=== PATIENT | male | born 1995 | race Hispanic/Latino ===

== ENCOUNTER 2017-09-05 14:51 | Inpatient (IN) | payer OTHER ==
[2017-09-05] MEDS ORDERED: ATIVAN IV STA (16:35)
[2017-09-05] MEDS ORDERED: NACL 0.9% 1000 ML 2,000 ML IV ONE (16:35)
[2017-09-05 16:59] LABS: Hematocrit 41.2 % (35.5-45.6); Hemoglobin 14.1 gm/dl (11.8-15.2); Mean Corpuscular HGB Conc 34 % (32-34); Mean Corpuscular Hemoglobin 32 pg (28-32); Mean Corpuscular Volume 92 fl (84-94); Platelet Count 193 K/mm3 (140-440); Red Blood Count 4.47 M/mm3 (3.65-5.03); Red Cell Distribution Width 13.1 % (13.2-15.2)
[2017-09-05 17:14] LABS: BUN/Creatinine Ratio 16; Blood Urea Nitrogen 13 mg/dL (9-20); Calcium 9.5 mg/dL (8.4-10.2); Hemolysis Index 7
[2017-09-05 17:16] LABS: Alanine Aminotransferase 13 units/L (7-56); Albumin 4.5 g/dL (3.9-5)
[2017-09-05 17:21] LABS: Bilirubin,Direct < 0.2 mg/dL (0-0.2)
[2017-09-05 17:25] LABS: Bilirubin,Urine NEG (Negative); Blood,Urine NEG (Negative); Color,Urine Yellow (Yellow); Mucus,Urine FEW /HPF; Protein,Urine <15 mg/dL mg/dL (Negative); Urobilinogen,Urine < 2.0 mg/dL (<2.0)
[2017-09-05 17:32] LABS: Amphetamine Screen,Urine PRESUMPTIVE NEGATIVE; Benzodiazepines Screen,Urine PRESUMPTIVE NEGATIVE; Cannabinoid Screen,Urine PRESUMPTIVE NEGATIVE; Cocaine Screen,Urine PRESUMPTIVE NEGATIVE; Methadone Screen,Urine PRESUMPTIVE NEGATIVE; Opiate Screen,Urine PRESUMPTIVE NEGATIVE
--- NOTE | 2017-09-05 17:41 | Emergency Department Report ---
ED General Adult HPI - General Chief complaint: Seizure Stated complaint: SEIZURE Time Seen by Provider: 09/05/17 16:24 Source: patient, EMS (ems notes not available at time of chart dictation), RN notes reviewed, old records reviewed Mode of arrival: Stretcher Limitations: Other (patient is a very poor historian) - History of Present Illness Initial comments: This is a 21-year-old male with a past history of PTSD, to inpatient psychiatric hospitalizations, history of alcohol abuse, former . The patient is brought to the hospital by EMS from a local psychiatric hospital for evaluation of a convulsion. The patient has no recollection of this convulsion. He can't recall precipitating events. The patient denies headache, neck pain, chest pain, abdominal pain, shortness of breath and urinary symptoms. Patient indicates he hasn't had alcohol for 8 months, and he has generalized tremors. He is not sure how long the tremors have been presents for. He cannot describe radiation, exacerbating or relieving factors. He does indicate that back in 2014 he had a convulsion versus seizure, can't recall what the event looked like, but reports that it was while he was in [place] and under a lot of stress. -: Sudden Severity scale (0 -10): 0 Consistency: now resolved Improves with: none Worsens with: none Associated Symptoms: confusion, seizure, weakness. denies: chest pain, cough, diaphoresis, fever/chills, headaches, loss of appetite, malaise, nausea/vomiting , rash, shortness of breath, syncope - Related Data Allergies Allergy/AdvReac Type Severity Reaction Status Date / Time fluoxetine [From Prozac] AdvReac Hives Verified 09/05/17 16:11 peanut AdvReac Angioedema Verified 09/05/17 16:11 walnut AdvReac Angioedema Verified 09/05/17 16:11 ED Review of Systems ROS: Stated complaint: SEIZURE Other details as noted in HPI Constitutional: malaise. denies: fever Eyes: denies: eye discharge ENT: denies: epistaxis Respiratory: denies: cough Cardiovascular: denies: chest pain Gastrointestinal: denies: abdominal pain Genitourinary: denies: dysuria Musculoskeletal: arthralgia, myalgia Skin: denies: lesions Neurological: weakness Psychiatric: anxiety ED Past Medical Hx - Past Medical History Hx Seizures: No Hx Psychiatric Treatment: Yes (PTSD, ALCOHOLISM) - Surgical History Past Surgical History?: No - Social History Smoking Status: Light Tobacco Smoker Substance Use Type: Alcohol ED Physical Exam - General Limitations: No Limitations General appearance: alert, in distress - Head Head exam: Present: atraumatic, normocephalic - Eye Eye exam: Present: normal appearance, EOMI. Absent: nystagmus - ENT ENT exam: Present: mucous membranes dry - Neck Neck exam: Present: normal inspection, full ROM. Absent: tenderness, meningismus - Respiratory Respiratory exam: Present: normal lung sounds bilaterally. Absent: respiratory distress - Cardiovascular Cardiovascular Exam: Present: regular rate, tachycardia, normal heart sounds. Absent: systolic murmur, diastolic murmur, rubs, gallop - GI/Abdominal GI/Abdominal exam: Present: soft, normal bowel sounds. Absent: distended, tenderness, guarding, rebound, rigid, pulsatile mass - Rectal Rectal exam: Present: deferred - Extremities Exam Extremities exam: Present: normal inspection, full ROM, normal capillary refill , other (2+ pulses noted in the bilateral upper, lower extremities. Compartments soft. No long bony tenderness. The pelvis is stable.). Absent: pedal edema, joint swelling, calf tenderness - Back Exam Back exam: Present: normal inspection, full ROM. Absent: paraspinal tenderness , vertebral tenderness - Neurological Exam Neurological exam: Present: alert (able to recall 3 out of 3 words at 0, but not at time 10 minutes.), oriented X3 (noted to have intentional tremor in 4 extremities which stops when you talk and engage the patient.), CN II-XII intact , normal gait, other (5 out of 5 strength bilateral upper, lower extremities. Sensation decreased to light touch right upper, right lower extremity which he reports is chronic. Sensation intact to pinprick in 4 extremities.). Absent: motor sensory deficit - Psychiatric Psychiatric exam: Present: anxious - Skin Skin exam: Present: warm, dry, intact, normal color. Absent: rash ED Course Vital Signs 09/05/17 09/05/17 09/05/17 15:42 15:43 16:02 Temperature 98.1 F 98.1 F Pulse Rate 115 H 115 H Respiratory 15 15 15 Rate Blood Pressure 124/77 Blood Pressure 124/77 [Right] O2 Sat by Pulse 99 Oximetry 09/05/17 09/05/17 19:34 19:35 Temperature 98.1 F Pulse Rate 87 Respiratory 18 Rate Blood Pressure 142/58 Blood Pressure 142/58 [Right] O2 Sat by Pulse 98 Oximetry - Reevaluation(s) Reevaluation #1: 09/05/17 17:41 Differential diagnosis, including but not limited to: Seizure, pseudoseizure, dehydration, alcohol withdrawal, nonspecific convulsion Assessment and plan: 21-year-old male with PTSD with bizarre affect, but not homicidal or suicidal, has a tremor which stops when you talk to him, with no obvious tongue fasciculations and no reported alcohol consumption for the past 8 months. He will be given IV fluids, Ativan, and basic laboratory studies will be evaluated and we will obtain a noncontrast CT scan of the brain. Elevated TSH is appreciated, may have a component of hypothyroidism, however he is tachycardic and slender, and does not endorse fatigue and does not endorse constipation. This can be followed up routinely as an outpatient. His other laboratory studies are unremarkable. 09/05/17 20:30 Reevaluation #2: 09/05/17 18:07 As per verbal report from nursing staff, patient's orally consumed some tobacco. He has been acting bizarrely ever since. He attempted to drink his own urine and stated that he thought it was lemonade. He is also not enunciating clearly, and articulates as though he is intoxicated. He is not exhibiting decision making capacity at this time, and given his attempt to consume urine, I am concerned that this was an act of self injurious behavior. The patient does not respond to verbal techniques or de-escalation techniques. He does not respond to show a force, and therefore required medication with Haldol for his safety and for staff safety. A 1013 is filled out, we will contact the psychiatric liaison Reevaluation #3: 09/05/17 20:30 Tachycardia is resolved. Patient has nibbled at some of his food. He continues to act bizarrely. He's not had a convulsion or seizure. Reevaluation #4: 09/05/17 20:47 The patient continues to refuse to eat. He lacks decision-making capacity. The outpatient psychiatric facility does not have the capability of closely monitoring his fingersticks. His hypoglycemia is the most likely etiologic agent for his convulsion. He will require hospital admission for glycemic control and optimization, and inpatient psychiatric consultation to further assist. He'll be started on a D10 drip. The Hospital physician is paged Reevaluation #5: 09/05/17 21:42 Dr. Cooley accepted the patient to the medical service. ED Medical Decision Making - Lab Data Result diagrams: 09/05/17 16:38 09/05/17 16:38 Vital Signs 09/05/17 09/05/17 09/05/17 15:42 15:43 16:02 Temperature 98.1 F 98.1 F Pulse Rate 115 H 115 H Respiratory 15 15 15 Rate Blood Pressure 124/77 Blood Pressure 124/77 [Right] O2 Sat by Pulse 99 Oximetry Lab Results 09/05/17 09/05/17 09/05/17 Range/Units 16:00 16:38 16:38 WBC 7.4 (4.5-11.0) K/mm3 RBC 4.47 (3.65-5.03) M/mm3 Hgb 14.1 (11.8-15.2) gm/dl Hct 41.2 (35.5-45.6) % MCV 92 (84-94) fl MCH 32 (28-32) pg MCHC 34 (32-34) % RDW 13.1 L (13.2-15.2) % Plt Count 193 (140-440) K/mm3 Sodium 137 (137-145) mmol/L Potassium 4.1 (3.6-5.0) mmol/L Chloride 98.7 (98-107) mmol/L Carbon Dioxide 25 (22-30) mmol/L Anion Gap 17 mmol/L BUN 13 (9-20) mg/dL Creatinine 0.8 (0.8-1.5) mg/dL Estimated GFR > 60 ml/min BUN/Creatinine Ratio 16 % Glucose 68 L (75-100) mg/dL POC Glucose 87 (70-105) Calcium 9.5 (8.4-10.2) mg/dL Magnesium (1.7-2.3) mg/dL Total Bilirubin (0.1-1.2) mg/dL Direct Bilirubin (0-0.2) mg/dL Indirect Bilirubin mg/dL AST (5-40) units/L ALT (7-56) units/L Alkaline Phosphatase (35-129) units/L Ammonia (25-60) umol/L Total Protein (6.3-8.2) g/dL Albumin (3.9-5) g/dL Albumin/Globulin Ratio % TSH (0.270-4.200) mlU/mL Urine Color (Yellow) Urine Turbidity (Clear) Urine pH (5.0-7.0) Ur Specific [place] (1.003-1.030) Urine Protein (Negative) mg/dL Urine Glucose (UA) (Negative) mg/dL Urine Ketones (Negative) mg/dL Urine Blood (Negative) Urine Nitrite (Negative) Urine Bilirubin (Negative) Urine Urobilinogen (<2.0) mg/dL Ur Leukocyte Esterase (Negative) Urine WBC (Auto) (0.0-6.0) /HPF Urine RBC (Auto) (0.0-6.0) /HPF U Epithel Cells (Auto) (0-13.0) /HPF Urine Mucus /HPF Salicylates (2.8-20.0) mg/dL Urine Opiates Screen Urine Methadone Screen Acetaminophen (10.0-30.0) ug/mL Ur Barbiturates Screen Ur Phencyclidine Scrn Ur Amphetamines Screen U Benzodiazepines Scrn Urine Cocaine Screen U Marijuana (THC) Screen Drugs of Abuse Note Plasma/Serum Alcohol (0-0.07) % 09/05/17 09/05/17 09/05/17 Range/Units 16:38 16:38 16:38 WBC (4.5-11.0) K/mm3 RBC (3.65-5.03) M/mm3 Hgb (11.8-15.2) gm/dl Hct (35.5-45.6) % MCV (84-94) fl MCH (28-32) pg MCHC (32-34) % RDW (13.2-15.2) % Plt Count (140-440) K/mm3 Sodium (137-145) mmol/L Potassium (3.6-5.0) mmol/L Chloride (98-107) mmol/L Carbon Dioxide (22-30) mmol/L Anion Gap mmol/L BUN (9-20) mg/dL Creatinine (0.8-1.5) mg/dL Estimated GFR ml/min BUN/Creatinine Ratio % Glucose (75-100) mg/dL POC Glucose (70-105) Calcium (8.4-10.2) mg/dL Magnesium 2.30 (1.7-2.3) mg/dL Total Bilirubin 0.40 (0.1-1.2) mg/dL Direct Bilirubin < 0.2 (0-0.2) mg/dL Indirect Bilirubin 0.2 mg/dL AST 20 (5-40) units/L ALT 13 (7-56) units/L Alkaline Phosphatase 58 (35-129) units/L Ammonia 40.0 (25-60) umol/L Total Protein 6.9 (6.3-8.2) g/dL Albumin 4.5 (3.9-5) g/dL Albumin/Globulin Ratio 1.9 % TSH 7.270 H (0.270-4.200) mlU/mL Urine Color (Yellow) Urine Turbidity (Clear) Urine pH (5.0-7.0) Ur Specific [place] (1.003-1.030) Urine Protein (Negative) mg/dL Urine Glucose (UA) (Negative) mg/dL Urine Ketones (Negative) mg/dL Urine Blood (Negative) Urine Nitrite (Negative) Urine Bilirubin (Negative) Urine Urobilinogen (<2.0) mg/dL Ur Leukocyte Esterase (Negative) Urine WBC (Auto) (0.0-6.0) /HPF Urine RBC (Auto) (0.0-6.0) /HPF U Epithel Cells (Auto) (0-13.0) /HPF Urine Mucus /HPF Salicylates (2.8-20.0) mg/dL Urine Opiates Screen Urine Methadone Screen Acetaminophen (10.0-30.0) ug/mL Ur Barbiturates Screen Ur Phencyclidine Scrn Ur Amphetamines Screen U Benzodiazepines Scrn Urine Cocaine Screen U Marijuana (THC) Screen Drugs of Abuse Note Plasma/Serum Alcohol (0-0.07) % 09/05/17 09/05/17 09/05/17 Range/Units 16:38 16:38 16:38 WBC (4.5-11.0) K/mm3 RBC (3.65-5.03) M/mm3 Hgb (11.8-15.2) gm/dl Hct (35.5-45.6) % MCV (84-94) fl MCH (28-32) pg MCHC (32-34) % RDW (13.2-15.2) % Plt Count (140-440) K/mm3 Sodium (137-145) mmol/L Potassium (3.6-5.0) mmol/L Chloride (98-107) mmol/L Carbon Dioxide (22-30) mmol/L Anion Gap mmol/L BUN (9-20) mg/dL Creatinine (0.8-1.5) mg/dL Estimated GFR ml/min BUN/Creatinine Ratio % Glucose (75-100) mg/dL POC Glucose (70-105) Calcium (8.4-10.2) mg/dL Magnesium (1.7-2.3) mg/dL Total Bilirubin (0.1-1.2) mg/dL Direct Bilirubin (0-0.2) mg/dL Indirect Bilirubin mg/dL AST (5-40) units/L ALT (7-56) units/L Alkaline Phosphatase (35-129) units/L Ammonia (25-60) umol/L Total Protein (6.3-8.2) g/dL Albumin (3.9-5) g/dL Albumin/Globulin Ratio % TSH (0.270-4.200) mlU/mL Urine Color (Yellow) Urine Turbidity (Clear) Urine pH (5.0-7.0) Ur Specific [place] (1.003-1.030) Urine Protein (Negative) mg/dL Urine Glucose (UA) (Negative) mg/dL Urine Ketones (Negative) mg/dL Urine Blood (Negative) Urine Nitrite (Negative) Urine Bilirubin (Negative) Urine Urobilinogen (<2.0) mg/dL Ur Leukocyte Esterase (Negative) Urine WBC (Auto) (0.0-6.0) /HPF Urine RBC (Auto) (0.0-6.0) /HPF U Epithel Cells (Auto) (0-13.0) /HPF Urine Mucus /HPF Salicylates < 0.3 L (2.8-20.0) mg/dL Urine Opiates Screen Urine Methadone Screen Acetaminophen < 5.0 L (10.0-30.0) ug/mL Ur Barbiturates Screen Ur Phencyclidine Scrn Ur Amphetamines Screen U Benzodiazepines Scrn Urine Cocaine Screen U Marijuana (THC) Screen Drugs of Abuse Note Plasma/Serum Alcohol < 0.01 (0-0.07) % 07/13/18 07/13/18 Range/Units Unknown Unknown WBC (4.5-11.0) K/mm3 RBC (3.65-5.03) M/mm3 Hgb (11.8-15.2) gm/dl Hct (35.5-45.6) % MCV (84-94) fl MCH (28-32) pg MCHC (32-34) % RDW (13.2-15.2) % Plt Count (140-440) K/mm3 Sodium (137-145) mmol/L Potassium (3.6-5.0) mmol/L Chloride (98-107) mmol/L Carbon Dioxide (22-30) mmol/L Anion Gap mmol/L BUN (9-20) mg/dL Creatinine (0.8-1.5) mg/dL Estimated GFR ml/min BUN/Creatinine Ratio % Glucose (75-100) mg/dL POC Glucose (70-105) Calcium (8.4-10.2) mg/dL Magnesium (1.7-2.3) mg/dL Total Bilirubin (0.1-1.2) mg/dL Direct Bilirubin (0-0.2) mg/dL Indirect Bilirubin mg/dL AST (5-40) units/L ALT (7-56) units/L Alkaline Phosphatase (35-129) units/L Ammonia (25-60) umol/L Total Protein (6.3-8.2) g/dL Albumin (3.9-5) g/dL Albumin/Globulin Ratio % TSH (0.270-4.200) mlU/mL Urine Color Yellow (Yellow) Urine Turbidity Clear (Clear) Urine pH 7.0 (5.0-7.0) Ur Specific [place] 1.012 (1.003-1.030) Urine Protein <15 mg/dl (Negative) mg/dL Urine Glucose (UA) Neg (Negative) mg/dL Urine Ketones Neg (Negative) mg/dL Urine Blood Neg (Negative) Urine Nitrite Neg (Negative) Urine Bilirubin Neg (Negative) Urine Urobilinogen < 2.0 (<2.0) mg/dL Ur Leukocyte Esterase Neg (Negative) Urine WBC (Auto) 1.0 (0.0-6.0) /HPF Urine RBC (Auto) 1.0 (0.0-6.0) /HPF U Epithel Cells (Auto) < 1.0 (0-13.0) /HPF Urine Mucus Few /HPF Salicylates (2.8-20.0) mg/dL Urine Opiates Screen Presumptive negative Urine Methadone Screen Presumptive negative Acetaminophen (10.0-30.0) ug/mL Ur Barbiturates Screen Presumptive negative Ur Phencyclidine Scrn Presumptive negative Ur Amphetamines Screen Presumptive negative U Benzodiazepines Scrn Presumptive negative Urine Cocaine Screen Presumptive negative U Marijuana (THC) Screen Presumptive negative Drugs of Abuse Note Disclamer Plasma/Serum Alcohol (0-0.07) % - EKG Data -: EKG Interpreted by Me EKG shows normal: sinus rhythm Rate: tachycardia - EKG Data When compared to previous EKG there are: previous EKG unavailable 09/05/17 17:41 Sinus tachycardia, 100 bpm, QTc 461, borderline high left ventricular voltage, Q waves noted in inferior leads, abnormal EKG, not a STEMI Critical care attestation.: If time is entered above; I have spent that time in minutes in the direct care of this critically ill patient, excluding procedure time. ED Disposition Clinical Impression: Hypoglycemia Convulsion Qualifiers: Convulsion type: unspecified Qualified Code(s): R56.9 - Unspecified convulsions Disposition: DC-09 OP ADMIT IP TO THIS HOSP Is pt being admited?: Yes Condition: Good Referrals: PRIMARY CARE, [Primary Care Provider] - 3-5 Days
[2017-09-05] MEDS ORDERED: D50W (25GM) Vial IV ONE (17:47)
[2017-09-05] MEDS ORDERED: HALDOL ONE (17:54)
[2017-09-05] MEDS ORDERED: HALDOL IM STA (17:59)
[2017-09-05] MEDS ORDERED: D50W (25GM) Syringe IV ONE ×2 (18:00→20:48)
--- NOTE | 2017-09-05 19:08 | Cat Scan Report ---
FINAL REPORT EXAM: CT HEAD/BRAIN WO CON HISTORY: seizure TECHNIQUE: CT head without contrast PRIORS: None. FINDINGS: No acute intra-axial or extra-axial hemorrhage is identified. There is no evidence of midline shift or mass effect. The ventricles and sulci are within normal limits. Puentes-white matter differentiation is intact. No acute parenchymal abnormalities seen. Bony calvarium is grossly intact. Visualized portions of the mastoids and paranasal sinuses are unremarkable. IMPRESSION: Negative CT head
[2017-09-05] MEDS ORDERED: D50W (25GM) Vial IV PRN (20:48)
[2017-09-05] MEDS ORDERED: ZOFRAN IV PRN (22:23)
[2017-09-05] MEDS ORDERED: SODIUM CHLORIDE FLUSH SYRINGE 10 ML IV PRN (22:23)
[2017-09-05] MEDS ORDERED: TYLENOL PO PRN (22:23)
[2017-09-05] MEDS ORDERED: D50W (25GM) Syringe IV PRN (22:28)
--- NOTE | 2017-09-05 22:38 | History and Physical Report ---
History of Present Illness Date of examination: 09/05/17 History of present illness: 21 year old man with history of depression, PTSD, alcohol abuse was sent to the emergency room from [facility] for evaluation of seizure. family services assistant from [facility] stated that the patient had a witnessed seizure lasting for approximately 5 minutes. The patient is sedated, he was given IV Ativan, haldol.ER physician states patient does not want to eat, was acting bizarre, wanting to drink his urine from the urinal, he was subsequently 1013. Review of system is unobtainable PAST MEDICAL HISTORY: depression, PTSD, alcohol abuse PAST SURGICAL HISTORY: Unknown SOCIAL HISTORY: Unknown FAMILY HISTORY: Unknown Medications and Allergies Allergies Allergy/AdvReac Type Severity Reaction Status Date / Time fluoxetine [From Prozac] AdvReac Hives Verified 09/05/17 16:11 peanut AdvReac Angioedema Verified 09/05/17 16:11 walnut AdvReac Angioedema Verified 09/05/17 16:11 Home Medications Medication Instructions Recorded Confirmed Last Taken Type Benadryl CAP 50 mg IV Q4HR PRN 09/08/17 09/08/17 09/05/17 History Clonidine 0.1 mg PO Q8HR PRN 09/08/17 09/08/17 Unknown History Cogentin 1 mg PO Q4HR PRN 09/08/17 09/08/17 09/04/17 History Cough Drops 1 lozenge PO 8XD PRN 09/08/17 09/08/17 Unknown History Diphen/Mylanta/Xyl Visc 30 ml PO DAILY PRN 09/08/17 09/08/17 Unknown History Escitalopram Oxalate [Lexapro] 20 mg PO DAILY 09/08/17 09/08/17 09/05/17 History Iron Post 300 mg PO BID 09/08/17 09/08/17 Unknown History Loperamide 2 mg PO 4XD PRN 09/08/17 09/08/17 Unknown History Loratadine 10 mg PO DAILY PRN 09/08/17 09/08/17 Unknown History Magnesium Hydroxide 30 ml PO DAILY PRN 09/08/17 09/08/17 Unknown History Minipress 2 mg PO HS 09/08/17 09/08/17 09/05/17 History Motrin 800 MG tab 800 mg PO TID PRN 09/08/17 09/08/17 Unknown History Risperdal 3 mg PO BID 09/08/17 09/08/17 09/05/17 History Trazodone HCl 50 mg PO HS PRN 09/08/17 09/08/17 Unknown History Vistaril 50 mg PO Q8HR PRN 09/08/17 09/08/17 Unknown History Active Meds: Active Medications Acetaminophen (Tylenol) 650 mg PO Q4H PRN PRN Reason: Pain MILD(1-3)/Fever >100.5/CAMPBELL Dextrose (D50w (25gm) Vial) 50 gm IV PRN PRN PRN Reason: Hypoglycemia Enoxaparin Sodium (Lovenox) 30 mg SUB-Q QDAY FRANCOIS Dextrose (D10w) 1,000 mls @ 100 mls/hr IV DIRECT FRANCOIS Ondansetron HCl (Zofran) 4 mg IV Q8H PRN PRN Reason: Nausea And Vomiting Sodium Chloride (Sodium Chloride Flush Syringe 10 Ml) 10 ml IV BID FRANCOIS Sodium Chloride (Sodium Chloride Flush Syringe 10 Ml) 10 ml IV PRN PRN PRN Reason: LINE FLUSH Exam - Physical Exam Narrative exam: Gen. appearance: Patient lying in bed, no apparent distress HEENT: Normocephalic, atraumatic, pupils equally round and reactive to light, unable to do extraocular movement , and no sclericterus,. No JVD or thyromegaly or nodule,neck supple, no carotid bruit ,mucous membranes moist, unable to examine oral cavity Heart: S1, S2, regular rate and rhythm Lungs: Clear bilaterally, breathing comfortable Abdomen: Positive bowel sounds, soft, nondistended, no organomegaly Extremity:no edema cyanosis, clubbing Skin: no rash, dry, warm Neuro: Sedated - Constitutional Vitals: Temp Pulse Resp BP Pulse Ox 98.1 F 87 18 142/58 98 09/05/17 19:35 09/05/17 19:35 09/05/17 19:35 09/05/17 19:35 09/05/17 19:35 Results - Labs CBC & Chem 7: 09/06/17 06:03 09/07/17 14:21 Labs: Abnormal lab results 09/05/17 09/05/17 09/05/17 Range/Units 16:38 16:38 16:38 RDW 13.1 L (13.2-15.2) % Glucose 68 L (75-100) mg/dL POC Glucose (70-105) TSH 7.270 H (0.270-4.200) mlU/mL Salicylates (2.8-20.0) mg/dL Acetaminophen (10.0-30.0) ug/mL 09/05/17 09/05/17 09/05/17 Range/Units 16:38 16:38 18:28 RDW (13.2-15.2) % Glucose (75-100) mg/dL POC Glucose 130 H (70-105) TSH (0.270-4.200) mlU/mL Salicylates < 0.3 L (2.8-20.0) mg/dL Acetaminophen < 5.0 L (10.0-30.0) ug/mL 09/05/17 09/05/17 Range/Units 20:42 21:50 RDW (13.2-15.2) % Glucose (75-100) mg/dL POC Glucose 68 L 149 H (70-105) TSH (0.270-4.200) mlU/mL Salicylates (2.8-20.0) mg/dL Acetaminophen (10.0-30.0) ug/mL - Imaging and Cardiology CT Scan - head: report reviewed Assessment and Plan Assessment Seizure, acute Hypoglycemia, ? decrease oral inake Plan Admit to medicine IV ativan for seizure Start D10, monitor blood levels DVT prophalaxis
[2017-09-05] MEDS: D10W 1,000 ML IV SCH (22:56)
[2017-09-06 06:57] LABS: Basophils # (Auto) 0.1 K/mm3 (0.0-0.1); Basophils % (Auto) 0.8 % (0.0-1.8); Eosinophils # (Auto) 0.3 K/mm3 (0.0-0.4); Eosinophils % (Auto) 3.2 % (0.0-4.3); Hematocrit 39.1 % (35.5-45.6); Hemoglobin 13.3 gm/dl (11.8-15.2); Mean Corpuscular HGB Conc 34 % (32-34); Mean Corpuscular Hemoglobin 31 pg (28-32); Mean Corpuscular Volume 93 fl (84-94); Monocytes # (Auto) 1.1 K/mm3 (0.0-0.8); Monocytes % (Auto) 10.3 % (0.0-7.3); Platelet Count 167 K/mm3 (140-440); Red Blood Count 4.22 M/mm3 (3.65-5.03); Red Cell Distribution Width 12.9 % (13.2-15.2)
[2017-09-06 07:06] LABS: BUN/Creatinine Ratio 14; Blood Urea Nitrogen 11 mg/dL (9-20); Calcium 9.5 mg/dL (8.4-10.2); Hemolysis Index 5
[2017-09-06] MEDS ORDERED: HALDOL IM PRN (07:29)
[2017-09-06] MEDS ORDERED: ATIVAN IV PRN (07:29)
[2017-09-06] MEDS: D10W 1,000 ML IV SCH ×2 (08:32→20:39)
[2017-09-06] MEDS: LOVENOX SUB-Q SCH (10:02)
[2017-09-06] MEDS: SODIUM CHLORIDE FLUSH SYRINGE 10 ML IV SCH ×2 (13:27→21:53)
--- NOTE | 2017-09-06 14:39 | Progress Note ---
Assessment and Plan Acute Seizure, induced by hypoglycemia? Hypoglycemia, ? decrease oral inake - IV ativan as needed for seizure, neuro consult - cont D10, monitor blood levels - psych consulted - DVT prophylaxis Subjective Date of service: 09/06/17 Interval history: Pt seen and examined Appetite improved, still c/o SI sitter at bedside Objective - Constitutional Vitals: Vital Signs - 12hr 09/06/17 09/06/17 09/06/17 05:56 06:00 08:05 Temperature 98.6 F 98.2 F Pulse Rate 81 74 Respiratory 20 18 Rate Blood Pressure 118/65 100/59 O2 Sat by Pulse 100 100 Oximetry 09/06/17 08:11 Temperature Pulse Rate Respiratory Rate Blood Pressure O2 Sat by Pulse 95 Oximetry General appearance: Present: no acute distress - EENT Eyes: PERRL, EOM intact ENT: hearing intact, clear oral mucosa Ears: bilateral: normal - Neck Neck: supple, normal ROM - Respiratory Respiratory effort: normal Respiratory: bilateral: CTA - Cardiovascular Rhythm: regular Heart Sounds: Present: S1 & S2. Absent: gallop, rub Extremities: pulses intact, No edema, normal color, Full ROM - Gastrointestinal General gastrointestinal: Present: soft, non-tender, non-distended, normal bowel sounds - Integumentary Integumentary: clear, warm, dry - Musculoskeletal Musculoskeletal: 1, strength equal bilaterally - Neurologic Neurologic: moves all extremities - Psychiatric Psychiatric: memory intact, appropriate mood/affect, intact judgment & insight - Labs CBC & Chem 7: 09/06/17 06:03 09/06/17 06:03 Labs: Abnormal lab results 09/05/17 09/05/17 09/05/17 Range/Units 16:38 16:38 16:38 RDW 13.1 L (13.2-15.2) % [place] % (Auto) (0.0-7.3) % [place] # (0.0-0.8) K/mm3 Glucose 68 L (75-100) mg/dL POC Glucose (70-105) TSH 7.270 H (0.270-4.200) mlU/mL Salicylates (2.8-20.0) mg/dL Acetaminophen (10.0-30.0) ug/mL 09/05/17 09/05/17 09/05/17 Range/Units 16:38 16:38 18:28 RDW (13.2-15.2) % [place] % (Auto) (0.0-7.3) % [place] # (0.0-0.8) K/mm3 Glucose (75-100) mg/dL POC Glucose 130 H (70-105) TSH (0.270-4.200) mlU/mL Salicylates < 0.3 L (2.8-20.0) mg/dL Acetaminophen < 5.0 L (10.0-30.0) ug/mL 09/05/17 09/05/17 09/06/17 Range/Units 20:42 21:50 00:45 RDW (13.2-15.2) % [place] % (Auto) (0.0-7.3) % [place] # (0.0-0.8) K/mm3 Glucose (75-100) mg/dL POC Glucose 68 L 149 H 119 H (70-105) TSH (0.270-4.200) mlU/mL Salicylates (2.8-20.0) mg/dL Acetaminophen (10.0-30.0) ug/mL 09/06/17 Range/Units 06:03 RDW 12.9 L (13.2-15.2) % [place] % (Auto) 10.3 H (0.0-7.3) % [place] # 1.1 H (0.0-0.8) K/mm3 Glucose (75-100) mg/dL POC Glucose (70-105) TSH (0.270-4.200) mlU/mL Salicylates (2.8-20.0) mg/dL Acetaminophen (10.0-30.0) ug/mL - Imaging and cardiology CT Scan - head: report reviewed (no acute abnormality)
[2017-09-07] MEDS: D10W 1,000 ML IV SCH ×2 (06:33→19:11)
[2017-09-07] MEDS: SODIUM CHLORIDE FLUSH SYRINGE 10 ML IV SCH ×2 (10:28→23:28)
[2017-09-07] MEDS: LOVENOX SUB-Q SCH (10:28)
[2017-09-07] MEDS: HumaLOG SUB-Q SCH ×3 (11:35→22:58)
[2017-09-07 15:03] LABS: BUN/Creatinine Ratio 11; Blood Urea Nitrogen 8 mg/dL (9-20); Calcium 9.5 mg/dL (8.4-10.2); Hemolysis Index 7
--- NOTE | 2017-09-07 17:57 | Progress Note ---
Assessment and Plan Acute Seizure, induced by hypoglycemia? Psychosis? Hypoglycemia, ? decrease oral inake - IV ativan as needed for seizure, neuro consulted, ordered EEG - cont D10, monitor blood Glucose levels - noted elevated TSH but has normal T4 level - ordered cortisol level - psych following, on 1013 - DVT prophylaxis Subjective Date of service: 09/07/17 Interval history: Pt seen and examined Appetite improved, denies SI sitter at bedside Objective - Constitutional Vitals: Vital Signs - 12hr 09/07/17 09/07/17 09:40 11:42 Temperature 98.8 F Respiratory 16 Rate Blood Pressure 106/68 O2 Sat by Pulse 98 Oximetry General appearance: Present: no acute distress - EENT Eyes: PERRL, EOM intact ENT: hearing intact, clear oral mucosa Ears: bilateral: normal - Neck Neck: supple, normal ROM - Respiratory Respiratory effort: normal Respiratory: bilateral: CTA - Cardiovascular Rhythm: regular Heart Sounds: Present: S1 & S2. Absent: gallop, rub Extremities: pulses intact, No edema, normal color, Full ROM - Gastrointestinal General gastrointestinal: Present: soft, non-tender, non-distended, normal bowel sounds - Integumentary Integumentary: clear, warm, dry - Musculoskeletal Musculoskeletal: 1, strength equal bilaterally - Neurologic Neurologic: moves all extremities - Psychiatric Psychiatric: memory intact, appropriate mood/affect, intact judgment & insight - Labs CBC & Chem 7: 09/06/17 06:03 09/07/17 14:21 Labs: Abnormal lab results 09/06/17 09/07/17 Range/Units 21:56 14:21 BUN 8 L (9-20) mg/dL Creatinine 0.7 L (0.8-1.5) mg/dL Glucose 109 H (75-100) mg/dL POC Glucose 120 H (70-105) - Imaging and cardiology CT Scan - head: report reviewed
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
[2017-09-08] MEDS: D10W 1,000 ML IV SCH ×2 (04:02→18:00)
[2017-09-08] MEDS: HumaLOG SUB-Q SCH ×4 (08:19→21:12)
--- NOTE | 2017-09-08 08:36 | Consultation ---
History of Present Illness Consult date: 09/08/17 History of present illness: new onset of seizures plan further w/u seen notes all labs/ consults reviewed prior psych hx noted Past History Past Medical History: seizures, other (history of head trauma x 2) Past Surgical History: Other (states he has schrapnel in his legs) Social history: , alcohol abuse Medications and Allergies Allergies Allergy/AdvReac Type Severity Reaction Status Date / Time fluoxetine [From Prozac] AdvReac Hives Verified 09/05/17 16:11 peanut AdvReac Angioedema Verified 09/05/17 16:11 walnut AdvReac Angioedema Verified 09/05/17 16:11 Active Meds: Active Medications Acetaminophen (Tylenol) 650 mg PO Q4H PRN PRN Reason: Pain MILD(1-3)/Fever >100.5/CAMP[place]LL Dextrose (D50w (25gm) Syringe) 25 ml IV PRN PRN PRN Reason: Hypoglycemia Enoxaparin Sodium (Lovenox) 40 mg SUB-Q QDAY [facility] Last Admin: 09/07/17 10:28 Dose: 40 mg Haloperidol Lactate (Haldol) 2.5 mg IM Q6H PRN PRN Reason: Agitation Dextrose (D10w) 1,000 mls @ 100 mls/hr IV DIRECT [facility] Last Admin: 09/08/17 04:02 Dose: 100 mls/hr Insulin Human Lispro (Humalog) 0 unit SUB-Q ACHS [facility]; Protocol Last Admin: 09/08/17 08:19 Dose: Not Given Lorazepam (Ativan) 2 mg IV Q1H PRN PRN Reason: CIWA-Ar 8-15 Ondansetron HCl (Zofran) 4 mg IV Q8H PRN PRN Reason: Nausea And Vomiting Sodium Chloride (Sodium Chloride Flush Syringe 10 Ml) 10 ml IV BID [facility] Last Admin: 09/07/17 23:28 Dose: 10 ml Sodium Chloride (Sodium Chloride Flush Syringe 10 Ml) 10 ml IV PRN PRN PRN Reason: LINE FLUSH Physical Examination - Vital Signs Vital Signs: Vital Signs Temp Pulse Resp BP Pulse Ox 98.1 F 115 H 15 124/77 99 09/05/17 15:42 09/05/17 15:42 09/05/17 15:42 09/05/17 15:42 09/05/17 15:42 Results - Laboratory Findings CBC and BMP: 09/06/17 06:03 09/07/17 14:21 Abnormal Lab Findings: Abnormal Labs 09/05/17 09/05/17 09/05/17 16:38 16:38 16:38 RDW 13.1 L [place] % (Auto) [place] # BUN Creatinine Glucose 68 L POC Glucose TSH 7.270 H Salicylates Acetaminophen 09/05/17 09/05/17 09/05/17 16:38 16:38 18:28 RDW [place] % (Auto) [place] # BUN Creatinine Glucose POC Glucose 130 H TSH Salicylates < 0.3 L Acetaminophen < 5.0 L 09/05/17 09/05/17 09/06/17 20:42 21:50 00:45 RDW [place] % (Auto) [place] # BUN Creatinine Glucose POC Glucose 68 L 149 H 119 H TSH Salicylates Acetaminophen 09/06/17 09/06/17 09/07/17 06:03 21:56 14:21 RDW 12.9 L [place] % (Auto) 10.3 H [place] # 1.1 H BUN 8 L Creatinine 0.7 L Glucose 109 H POC Glucose 120 H TSH Salicylates Acetaminophen
[2017-09-08] MEDS: LOVENOX SUB-Q SCH (11:16)
[2017-09-08] MEDS: SODIUM CHLORIDE FLUSH SYRINGE 10 ML IV SCH ×2 (11:17→21:12)
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
--- NOTE | 2017-09-08 15:23 | Progress Note ---
Assessment and Plan Acute Seizure, induced by hypoglycemia? Psychosis? - IV ativan as needed for seizure, neuro consulted, ordered EEG Hypoglycemia, ? decrease oral inake - placed on D10, monitor blood Glucose levels - noted elevated TSH but has normal T4 level - ordered cortisol level - BG much better today, will monitor BG off D10 Suicidal ideation - psych following, on 1013 h/o alcohol abuse - on remission - DVT prophylaxis with lovenox Brief history: This is a 21-year-old male, , with history of PTSD and bipolar 1 (per his report) admitted to [facility] after having a seizure while hospitalized at [place]. He does not remember what happened before or after the seizure. The record indicates his blood sugar was low. Subjective Date of service: 09/08/17 Interval history: Pt seen and examined Appetite improved, denies SI sitter at bedside Objective - Exam Narrative Exam: General appearance: Present: no acute distress - EENT Eyes: PERRL, EOM intact ENT: hearing intact, clear oral mucosa Ears: bilateral: normal - Neck Neck: supple, normal ROM - Respiratory Respiratory effort: normal Respiratory: bilateral: CTA - Cardiovascular Rhythm: regular Heart Sounds: Present: S1 & S2. Absent: gallop, rub Extremities: pulses intact, No edema, normal color, Full ROM - Gastrointestinal General gastrointestinal: Present: soft, non-tender, non-distended, normal bowel sounds - Integumentary Integumentary: clear, warm, dry - Musculoskeletal Musculoskeletal: 1, strength equal bilaterally - Neurologic Neurologic: moves all extremities - Psychiatric Psychiatric: memory intact, appropriate mood/affect, intact judgment & insight - Constitutional Vitals: Vital Signs - 12hr 09/08/17 09/08/17 06:18 12:04 Temperature 98.4 F 98.1 F Pulse Rate 66 69 Respiratory 20 16 Rate Blood Pressure 105/58 118/57 O2 Sat by Pulse 99 99 Oximetry - Labs CBC & Chem 7: 09/06/17 06:03 09/07/17 14:21
[2017-09-09] MEDS: HumaLOG SUB-Q SCH ×3 (08:33→21:23)
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
[2017-09-09] MEDS: LOVENOX SUB-Q SCH (10:20)
[2017-09-09] MEDS: SODIUM CHLORIDE FLUSH SYRINGE 10 ML IV SCH (10:20)
--- NOTE | 2017-09-09 14:06 | Progress Note ---
Assessment and Plan Assessment and plan: Patient is a 21-year-old man who is a , with history of PTSD and Bipolar Disorder admitted to [facility] after having a seizure while hospitalized at [place]. He does not remember what happened before or after the seizure. The record indicates his blood sugar was low. Acute metabolic encephalopathy, poa due to hypoglycemia -Cortical level still pending, called and spoke with Getu from lab, it is a send out lab and comes back in 3-5 business days. Acute Seizure, induced by hypoglycemia? Psychosis? - IV ativan as needed for seizure, neuro consulted, ordered EEG Hypoglycemia, ? decrease oral intake, resolved - noted elevated TSH but has normal T4 level - ordered cortisol level - BG steady, will monitor BG off D10 Suicidal ideation - psych following, on 1013 h/o alcohol abuse - on remission DVT prophylaxis with lovenox Medically stable to be discharged to inpatient psych History Interval history: Patient was seen and examined. Follow-up on current diagnosis. Overnight uneventful. Patient denies any chest pain, shortness breath, nausea/vomiting or severe headaches. Imaging, nursing note, chart, labs and old chart reviewed. Discussed with patient. GEN: WDWN, NAD, Awake, Alert, Orientated HEENT: NCAT, EOMI, PERRL, OP Clear NECK: supple, no adenopathy, no thyromegaly, no JVD CVS/HEART: RRR, normal S1S2, pulses present bilaterally CHEST/LUNGS: CTA B, Symmetrical chest expansion, good air entry bilaterally GI/Abdomen: soft, NTND, good bowel sounds, no guarding or rebound /Bladder: no suprapubic tenderness, no CVA or paraspinal tenderness EXT/Skin: no c/c/e, no obvious rash MSK: FROM x 4 Neuro: CN 2-12 grossly intact, no new focal deficits Psych: calm PMH: as hpi PSH: SH: FH: ROS: Constitutional: denies: fever ENT: denies: throat or neck pain Respiratory: denies: cough, shortness of breath Cardiovascular: denies: chest pain Endocrine: denies unexplained weight loss or gain Gastrointestinal: denies: abdominal pain, nausea Genitourinary: denies: dysuria Rectal: denies no incontinence, no bleeding, no itching, no discharge Musculoskeletal: denies swelling, myaglia, muscle weakness Skin: denies: rash Neurological: denies: headache Hematological/Lymphatic: denies: easy bleeding or easy bruising Allergic/Immunologic: no urticaria, no allergic rhinitis, no anaphylaxis Psych: denies sadness or hopelessness, SI/HI If blood glucose (BG) is 150-200 then give 2 units of insulin, if BG 201-250 give 4 units, if BG 251-300 give 6 u, if BG 301-350 give 8 units, if BG 351-400 give 10 units, if BG 401-450 give 12 units, if BG 451-500 give 14 units. Call MD immediately if BG>400 or BG<70 Hospitalist Physical - Constitutional Vitals: Temp Pulse Resp BP Pulse Ox 98.7 F 68 18 110/56 98 09/09/17 13:00 09/09/17 13:00 09/09/17 13:00 09/09/17 13:00 09/09/17 13:00 General appearance: Present: no acute distress Results - Labs CBC & Chem 7: 09/06/17 06:03 09/07/17 14:21 Labs: Laboratory Last Values WBC 10.5 K/mm3 (4.5-11.0) 09/06/17 06:03 RBC 4.22 M/mm3 (3.65-5.03) 09/06/17 06:03 Hgb 13.3 gm/dl (11.8-15.2) 09/06/17 06:03 Hct 39.1 % (35.5-45.6) 09/06/17 06:03 MCV 93 fl (84-94) 09/06/17 06:03 MCH 31 pg (28-32) 09/06/17 06:03 MCHC 34 % (32-34) 09/06/17 06:03 RDW 12.9 % (13.2-15.2) L 09/06/17 06:03 Plt Count 167 K/mm3 (140-440) 09/06/17 06:03 Lymph % (Auto) 19.0 % (13.4-35.0) 09/06/17 06:03 [place] % (Auto) 10.3 % (0.0-7.3) H 09/06/17 06:03 Eos % (Auto) 3.2 % (0.0-4.3) 09/06/17 06:03 Baso % (Auto) 0.8 % (0.0-1.8) 09/06/17 06:03 Lymph # 2.0 K/mm3 (1.2-5.4) 09/06/17 06:03 [place] # 1.1 K/mm3 (0.0-0.8) H 09/06/17 06:03 Eos # 0.3 K/mm3 (0.0-0.4) 09/06/17 06:03 Baso # 0.1 K/mm3 (0.0-0.1) 09/06/17 06:03 Seg Neutrophils % 66.7 % (40.0-70.0) 09/06/17 06:03 Seg Neutrophils # 7.0 K/mm3 (1.8-7.7) 09/06/17 06:03 Sodium 137 mmol/L (137-145) 09/07/17 14:21 Potassium 4.2 mmol/L (3.6-5.0) 09/07/17 14:21 Chloride 98.3 mmol/L (98-107) 09/07/17 14:21 Carbon Dioxide 30 mmol/L (22-30) 09/07/17 14:21 Anion Gap 13 mmol/L 09/07/17 14:21 BUN 8 mg/dL (9-20) L 09/07/17 14:21 Creatinine 0.7 mg/dL (0.8-1.5) L 09/07/17 14:21 Estimated GFR > 60 ml/min 09/07/17 14:21 BUN/Creatinine Ratio 11 % 09/07/17 14:21 Glucose 109 mg/dL (75-100) H 09/07/17 14:21 POC Glucose 146 (70-105) H 09/08/17 20:37 Calcium 9.5 mg/dL (8.4-10.2) 09/07/17 14:21 Magnesium 2.30 mg/dL (1.7-2.3) 09/05/17 16:38 Total Bilirubin 0.40 mg/dL (0.1-1.2) 09/05/17 16:38 Direct Bilirubin < 0.2 mg/dL (0-0.2) 09/05/17 16:38 Indirect Bilirubin 0.2 mg/dL 09/05/17 16:38 AST 20 units/L (5-40) 09/05/17 16:38 ALT 13 units/L (7-56) 09/05/17 16:38 Alkaline Phosphatase 58 units/L (35-129) 09/05/17 16:38 Ammonia 40.0 umol/L (25-60) 09/05/17 16:38 Total Protein 6.9 g/dL (6.3-8.2) 09/05/17 16:38 Albumin 4.5 g/dL (3.9-5) 09/05/17 16:38 Albumin/Globulin Ratio 1.9 % 09/05/17 16:38 TSH 7.270 mlU/mL (0.270-4.200) H 09/05/17 16:38 Free T4 1.24 ng/dL (0.76-1.46) 09/07/17 11:10 Urine Color Yellow (Yellow) 09/05/17 Unknown Urine Turbidity Clear (Clear) 09/05/17 Unknown Urine pH 7.0 (5.0-7.0) 09/05/17 Unknown Ur Specific [place] 1.012 (1.003-1.030) 09/05/17 Unknown Urine Protein <15 mg/dl mg/dL (Negative) 09/05/17 Unknown Urine Glucose (UA) Neg mg/dL (Negative) 09/05/17 Unknown Urine Ketones Neg mg/dL (Negative) 09/05/17 Unknown Urine Blood Neg (Negative) 09/05/17 Unknown Urine Nitrite Neg (Negative) 09/05/17 Unknown Urine Bilirubin Neg (Negative) 09/05/17 Unknown Urine Urobilinogen < 2.0 mg/dL (<2.0) 09/05/17 Unknown Ur Leukocyte Esterase Neg (Negative) 09/05/17 Unknown Urine WBC (Auto) 1.0 /HPF (0.0-6.0) 09/05/17 Unknown Urine RBC (Auto) 1.0 /HPF (0.0-6.0) 09/05/17 Unknown U Epithel Cells (Auto) < 1.0 /HPF (0-13.0) 09/05/17 Unknown Urine Mucus Few /HPF 09/05/17 Unknown Salicylates < 0.3 mg/dL (2.8-20.0) L 09/05/17 16:38 Urine Opiates Screen Presumptive negative 09/05/17 Unknown Urine Methadone Screen Presumptive negative 09/05/17 Unknown Acetaminophen < 5.0 ug/mL (10.0-30.0) L 09/05/17 16:38 Ur Barbiturates Screen Presumptive negative 09/05/17 Unknown Ur Phencyclidine Scrn Presumptive negative 09/05/17 Unknown Ur Amphetamines Screen Presumptive negative 09/05/17 Unknown U Benzodiazepines Scrn Presumptive negative 09/05/17 Unknown Urine Cocaine Screen Presumptive negative 09/05/17 Unknown U Marijuana (THC) Screen Presumptive negative 09/05/17 Unknown Drugs of Abuse Note Disclamer 09/05/17 Unknown Plasma/Serum Alcohol < 0.01 % (0-0.07) 09/05/17 16:38
[2017-09-10] MEDS: SODIUM CHLORIDE FLUSH SYRINGE 10 ML IV SCH ×2 (06:34→09:16)
[2017-09-10] MEDS: HumaLOG SUB-Q SCH ×4 (09:14→22:47)
[2017-09-10] MEDS: LOVENOX SUB-Q SCH (09:15)
--- NOTE | 2017-09-10 11:58 | Progress Note ---
Assessment and Plan Assessment and plan: Patient is a 21-year-old man who is a , with history of PTSD and Bipolar Disorder admitted to [facility] after having a seizure while hospitalized at [place]. He does not remember what happened before or after the seizure. The record indicates his blood sugar was low. Acute metabolic encephalopathy, poa due to hypoglycemia -Cortical level still pending, called and spoke with Getu from lab, it is a send out lab and comes back in 3-5 business days. Acute Seizure, induced by hypoglycemia? Psychosis? - IV ativan as needed for seizure, neuro consulted, ordered EEG Hypoglycemia, ? decrease oral intake, resolved - noted elevated TSH but has normal T4 level - ordered cortisol level - BG steady, will monitor BG off D10 Suicidal ideation - psych following, on 1013 h/o alcohol abuse - on remission DVT prophylaxis with lovenox Medically stable to be discharged to inpatient psych Not hypotensive, normal potassium/sodium levels, so no need for steroids; therefore, Cortisol can be followed up outpatient with Endocrinology consult to Dr. Wolfe once out of [place]; also need repeat thyroid function including total T3 as well as tsh and free t4, EEG can be done outpatient with dr. Rinaldi Cortical level can be followed up outpatient. History Interval history: Patient was seen and examined. Follow-up on current diagnosis. Overnight uneventful. Patient denies any chest pain, shortness breath, nausea/vomiting or severe headaches. Imaging, nursing note, chart, labs and old chart reviewed. Discussed with patient. Hospitalist Physical - Physical exam Narrative exam: GEN: WDWN, NAD, Awake, Alert, Orientated x 3 HEENT: NCAT, EOMI, PERRL, OP Clear NECK: supple, no adenopathy, no thyromegaly, no JVD CVS/HEART: RRR, normal S1S2, pulses present bilaterally CHEST/LUNGS: CTA B, Symmetrical chest expansion, good air entry bilaterally GI/Abdomen: soft, NTND, good bowel sounds, no guarding or rebound /Bladder: no suprapubic tenderness, no CVA or paraspinal tenderness EXT/Skin: no c/c/e, no obvious rash MSK: FROM x 4 Neuro: CN 2-12 grossly intact, no new focal deficits Psych: calm - Constitutional Vitals: Temp Pulse Resp BP Pulse Ox 98.3 F 63 16 102/46 98 07/18/18 06:29 07/18/18 06:29 09/10/17 06:29 09/10/17 06:29 09/10/17 06:29 General appearance: Present: no acute distress Results - Labs CBC & Chem 7: 09/06/17 06:03 09/07/17 14:21 Labs: Laboratory Last Values WBC 10.5 K/mm3 (4.5-11.0) 09/06/17 06:03 RBC 4.22 M/mm3 (3.65-5.03) 09/06/17 06:03 Hgb 13.3 gm/dl (11.8-15.2) 09/06/17 06:03 Hct 39.1 % (35.5-45.6) 09/06/17 06:03 MCV 93 fl (84-94) 09/06/17 06:03 MCH 31 pg (28-32) 09/06/17 06:03 MCHC 34 % (32-34) 09/06/17 06:03 RDW 12.9 % (13.2-15.2) L 09/06/17 06:03 Plt Count 167 K/mm3 (140-440) 09/06/17 06:03 Lymph % (Auto) 19.0 % (13.4-35.0) 09/06/17 06:03 [place] % (Auto) 10.3 % (0.0-7.3) H 09/06/17 06:03 Eos % (Auto) 3.2 % (0.0-4.3) 09/06/17 06:03 Baso % (Auto) 0.8 % (0.0-1.8) 09/06/17 06:03 Lymph # 2.0 K/mm3 (1.2-5.4) 09/06/17 06:03 [place] # 1.1 K/mm3 (0.0-0.8) H 09/06/17 06:03 Eos # 0.3 K/mm3 (0.0-0.4) 09/06/17 06:03 Baso # 0.1 K/mm3 (0.0-0.1) 09/06/17 06:03 Seg Neutrophils % 66.7 % (40.0-70.0) 09/06/17 06:03 Seg Neutrophils # 7.0 K/mm3 (1.8-7.7) 09/06/17 06:03 Sodium 137 mmol/L (137-145) 09/07/17 14:21 Potassium 4.2 mmol/L (3.6-5.0) 09/07/17 14:21 Chloride 98.3 mmol/L (98-107) 09/07/17 14:21 Carbon Dioxide 30 mmol/L (22-30) 09/07/17 14:21 Anion Gap 13 mmol/L 09/07/17 14:21 BUN 8 mg/dL (9-20) L 09/07/17 14:21 Creatinine 0.7 mg/dL (0.8-1.5) L 09/07/17 14:21 Estimated GFR > 60 ml/min 09/07/17 14:21 BUN/Creatinine Ratio 11 % 09/07/17 14:21 Glucose 109 mg/dL (75-100) H 09/07/17 14:21 POC Glucose 90 (70-105) 09/10/17 07:47 Calcium 9.5 mg/dL (8.4-10.2) 09/07/17 14:21 Magnesium 2.30 mg/dL (1.7-2.3) 09/05/17 16:38 Total Bilirubin 0.40 mg/dL (0.1-1.2) 09/05/17 16:38 Direct Bilirubin < 0.2 mg/dL (0-0.2) 09/05/17 16:38 Indirect Bilirubin 0.2 mg/dL 09/05/17 16:38 AST 20 units/L (5-40) 09/05/17 16:38 ALT 13 units/L (7-56) 09/05/17 16:38 Alkaline Phosphatase 58 units/L (35-129) 09/05/17 16:38 Ammonia 40.0 umol/L (25-60) 09/05/17 16:38 Total Protein 6.9 g/dL (6.3-8.2) 09/05/17 16:38 Albumin 4.5 g/dL (3.9-5) 09/05/17 16:38 Albumin/Globulin Ratio 1.9 % 09/05/17 16:38 TSH 7.270 mlU/mL (0.270-4.200) H 09/05/17 16:38 Free T4 1.24 ng/dL (0.76-1.46) 09/07/17 11:10 Urine Color Yellow (Yellow) 09/05/17 Unknown Urine Turbidity Clear (Clear) 09/05/17 Unknown Urine pH 7.0 (5.0-7.0) 09/05/17 Unknown Ur Specific [place] 1.012 (1.003-1.030) 09/05/17 Unknown Urine Protein <15 mg/dl mg/dL (Negative) 09/05/17 Unknown Urine Glucose (UA) Neg mg/dL (Negative) 09/05/17 Unknown Urine Ketones Neg mg/dL (Negative) 09/05/17 Unknown Urine Blood Neg (Negative) 09/05/17 Unknown Urine Nitrite Neg (Negative) 09/05/17 Unknown Urine Bilirubin Neg (Negative) 09/05/17 Unknown Urine Urobilinogen < 2.0 mg/dL (<2.0) 09/05/17 Unknown Ur Leukocyte Esterase Neg (Negative) 09/05/17 Unknown Urine WBC (Auto) 1.0 /HPF (0.0-6.0) 09/05/17 Unknown Urine RBC (Auto) 1.0 /HPF (0.0-6.0) 09/05/17 Unknown U Epithel Cells (Auto) < 1.0 /HPF (0-13.0) 09/05/17 Unknown Urine Mucus Few /HPF 09/05/17 Unknown Salicylates < 0.3 mg/dL (2.8-20.0) L 09/05/17 16:38 Urine Opiates Screen Presumptive negative 09/05/17 Unknown Urine Methadone Screen Presumptive negative 09/05/17 Unknown Acetaminophen < 5.0 ug/mL (10.0-30.0) L 09/05/17 16:38 Ur Barbiturates Screen Presumptive negative 09/05/17 Unknown Ur Phencyclidine Scrn Presumptive negative 09/05/17 Unknown Ur Amphetamines Screen Presumptive negative 09/05/17 Unknown U Benzodiazepines Scrn Presumptive negative 09/05/17 Unknown Urine Cocaine Screen Presumptive negative 09/05/17 Unknown U Marijuana (THC) Screen Presumptive negative 09/05/17 Unknown Drugs of Abuse Note Disclamer 09/05/17 Unknown Plasma/Serum Alcohol < 0.01 % (0-0.07) 09/05/17 16:38
--- NOTE | 2017-09-10 12:03 | Discharge Summary ---
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 He does not remember what happened before or after the seizure. The record indicates his blood sugar was low. Acute metabolic encephalopathy, poa due to hypoglycemia -Cortical level still pending, called and spoke with Getu from lab, it is a send out lab and comes back in 3-5 business days. Acute Seizure, induced by hypoglycemia? Psychosis? - IV ativan as needed for seizure, neuro consulted, ordered EEG==> d/w Dr. Rinaldi, he recommends keppra 750mg bid Hypoglycemia, ? decrease oral intake, resolved - noted elevated TSH but has normal T4 level - ordered cortisol level - BG steady, will monitor BG off D10 Suicidal ideation - psych following, on 1013 h/o alcohol abuse - on remission DVT prophylaxis with lovenox Not hypotensive, normal potassium/sodium levels, so no need for steroids; therefore, Cortisol can be followed up outpatient with Endocrinology consult to Dr. Wolfe once out of [place]; also need repeat thyroid function including total T3 as well as tsh and free t4, EEG can be done outpatient with dr. Rinaldi Cortical level can be followed up outpatient. Medically stable to be discharged to inpatient psych Disposition: DC/TX-65 PSY HOSP/PSY UNIT Time spent for discharge: 33 minutes Core Measure Documentation - Palliative Care Palliative Care/ Comfort Measures: Not Applicable - Core Measures Any of the following diagnoses?: none - VTE Discharge Requirements Deep Vein Thrombosis/Pulmonary Embolism Present on Admission: No Has pt received <5 days of overlap therapy or INR<2.0: No Anticoagulant overlap therapy prescribed at discharge: No Contraindication No Overlap Therapy order at DC: Not Indicated Exam - Physical Exam Narrative exam: GEN: WDWN, NAD, Awake, Alert, Orientated x 3 HEENT: NCAT, EOMI, PERRL, OP Clear NECK: supple, no adenopathy, no thyromegaly, no JVD CVS/HEART: RRR, normal S1S2, pulses present bilaterally CHEST/LUNGS: CTA B, Symmetrical chest expansion, good air entry bilaterally GI/Abdomen: soft, NTND, good bowel sounds, no guarding or rebound /Bladder: no suprapubic tenderness, no CVA or paraspinal tenderness EXT/Skin: no c/c/e, no obvious rash MSK: FROM x 4 Neuro: CN 2-12 grossly intact, no new focal deficits Psych: calm - Constitutional Vitals: Temp Pulse Resp BP Pulse Ox 98.3 F 63 16 102/46 98 09/10/17 06:29 09/10/17 06:29 09/10/17 06:29 09/10/17 06:29 09/10/17 06:29 Plan Diet: regular Additional Instructions: Make appointment with Dr. Wolfe to recheck Thyroid level and follow up Cortisol level. Dr. Benjamín Wolfe. Endocrinology, diabetes & metabolism. [address] [id number]. [phone] Follow up with: PRIMARY CAREMD [Primary Care Provider] - 3-5 Days COBY RINALDI MD [Staff Physician] - 7 Days Prescriptions: levETIRAcetam [Keppra TAB] 750 mg PO BID #60 tablet
--- NOTE | 2017-09-10 13:39 | Progress Note ---
Subjective - Reason for Consult Consult date: 09/10/17 Reason for consult: Psychiatric Follow-up Evaluation - Chief Complaint Chief complaint: "I'm feeling alright" Patient is a 21-year-old male, , with history of PTSD and Bipolar I (per his report) admitted to [facility] after having a seizure while hospitalized at [place]. Today the patient is calm, cooperative, and compliant during the assessment. He reports decrease homicidal ideations toward the "Taliban." He states the "Taliban" killed 23 of his friends when he was stationed in the [facility]. The patient wants to continue mental health treatment once discharged from [facility]. He denies SI's and A/VH's when asked. He reports good energy, sleep, and appetite. Mental Status Exam - Vital signs Last Vital Signs Temp 98.3 F 09/10/17 06:29 Pulse 63 09/10/17 06:29 Resp 16 09/10/17 06:29 BP 102/46 09/10/17 06:29 Pulse Ox 98 09/10/17 06:29 - Exam Narrative exam: Mental Status Exam General Appearance: Causally Dressed-hospital gown Eye Contact: Intermittent Orientation: Alert and oriented x 4 ( person, place, time, and situation) Attitude/Behavior: Cooperative Sensorium: Distracted Psychomotor & Musculoskeletal Activity: Laying in bed Mood: "Alright" Affect: Congruent with mood Speech/Language: Regular rate and tone Thought Processes: Circumstantial Thought Content: Impoverished. Perception: WNL. Patient denies delusions Concentration/Attention: Impaired Suicidal Ideations/Plan: Patient denies. Homicidal Ideations/Plan: + decrease homicidal ideations toward " Taliban" Insight: Fair Judgment: Fair Assessment and Plan Impression: Bipolar I, most recent episode manic by his report. Hx of PTSD and Alcohol Use DO. Today the patient is calm, cooperative, and compliant during the assessment. The patient is pending an EEG. DDx: MDD Medical: Seizure? Neuro is following. 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 Recommendation/Plan: 1. Continue 1013 with placement to inpatient psychiatric services once medically clear. Once medically cleared patient will return to [facility]. 2. Continue to hold psych meds at this time. Will assess patient daily.
[2017-09-10] MEDS: KEPPRA PO SCH (13:43)
[2017-09-11] MEDS: KEPPRA PO SCH ×3 (02:55→22:39)
[2017-09-11] MEDS: SODIUM CHLORIDE FLUSH SYRINGE 10 ML IV SCH ×3 (02:56→22:00)
[2017-09-11] MEDS: HumaLOG SUB-Q SCH ×4 (08:03→22:00)
[2017-09-11] MEDS: LOVENOX SUB-Q SCH (09:16)
--- NOTE | 2017-09-11 11:13 | Progress Note ---
Subjective - Reason for Consult Consult date: 09/11/17 Reason for consult: Psychiatry Follow-up - Chief Complaint Chief complaint: "When will I be transferred" Patient is a 21-year-old male, , with history of PTSD and Bipolar I (per his report) admitted to [facility] after having a seizure while hospitalized at [place]. Today the patient is calm and cooperative during the assessment. He stated that he is suicidal and homicidal because of [place] He stated that he has no reason to live at this time. He stated that he took Risperdal prior to coming to [facility] as a home medication. He denies AVH's. Mental Status Exam - Vital signs Last Vital Signs Temp 97.9 F 09/11/17 05:51 Pulse 60 09/11/17 05:51 Resp 20 09/11/17 05:51 BP 91/43 09/11/17 05:51 Pulse Ox 99 09/11/17 05:51 - Exam Narrative exam: MSE: Appearance: calm, cooperative Behavior: regular eye contact Speech: regular rate and tone Mood: "depressed" Affect: congruent to mood Thought Process: circumstantial Thought Content: denies AVH's Motor Activity: sitting up in bed Cognition: A/O x 3 Insight: fair Judgment: variable Assessment and Plan Impression: Bipolar 1, most recent episode manic by his report. Hx of PTSD and Alcohol Use DO. Today the patient is calm and cooperative during the assessment. DDx: MDD Medical: Per Neuro, the EEG can be done outpatient. 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 Recommendation/Plan: Continue 1013 with placement to inpatient psy services. Start Risperdal 1 mg PO HS for mood. Discussed possible metabolic side effects of Risperdal with patient.
--- NOTE | 2017-09-11 14:35 | Progress Note ---
Assessment and Plan Assessment and plan: Patient is a 21-year-old man who is a , with history of PTSD and Bipolar Disorder admitted to [facility] after having a seizure while hospitalized at [place]. He does not remember what happened before or after the seizure. The record indicates his blood sugar was low. Acute metabolic encephalopathy, poa due to hypoglycemia -Cortical level still pending, called and spoke with Yaya from lab, it is a send out lab and comes back in 3-5 business days,sent 09/08/17 Acute Seizure, induced by hypoglycemia? Psychosis? - on Keppra per Dr. Rinaldi Hypoglycemia, lowest blood glucose on bmp was 68, most likely from decrease oral intake - noted elevated TSH but has normal T4 level - ordered cortisol level - BG steady, will monitor BG off D10 Suicidal ideation - psych following, on 1013 h/o alcohol abuse - on remission DVT prophylaxis with lovenox Not hypotensive, normal potassium/sodium levels, so no need for steroids; therefore, Cortisol can be followed up outpatient with Endocrinology consult to Dr. Wolfe once out of [place]; also need repeat thyroid function including total T3 as well as tsh and free t4, EEG can be done outpatient with dr. Rinaldi Cortical level can be followed up outpatient. Spoke again with Yaya from [facility], she will call [facility] and call me back Medically stable to be discharged to inpatient psych History Interval history: Patient was seen and examined. Follow-up on current diagnosis. Overnight uneventful. Patient denies any chest pain, shortness breath, nausea/vomiting or severe headaches. Imaging, nursing note, chart, labs and old chart reviewed. Discussed with patient. He still has SI and HI. Hospitalist Physical - Physical exam Narrative exam: GEN: WDWN, NAD, Awake, Alert, Orientated x 3 HEENT: NCAT, EOMI, PERRL, OP Clear NECK: supple, no adenopathy, no thyromegaly, no JVD CVS/HEART: RRR, normal S1S2, pulses present bilaterally CHEST/LUNGS: CTA B, Symmetrical chest expansion, good air entry bilaterally GI/Abdomen: soft, NTND, good bowel sounds, no guarding or rebound /Bladder: no suprapubic tenderness, no CVA or paraspinal tenderness EXT/Skin: no c/c/e, no obvious rash MSK: FROM x 4 Neuro: CN 2-12 grossly intact, no new focal deficits Psych: calm - Constitutional Vitals: Temp Pulse Resp BP Pulse Ox 97.9 F 60 20 91/43 99 09/11/17 05:51 09/11/17 05:51 09/11/17 05:51 09/11/17 05:51 09/11/17 05:51 General appearance: Present: no acute distress Results - Labs CBC & Chem 7: 09/06/17 06:03 09/07/17 14:21 Labs: Laboratory Last Values WBC 10.5 K/mm3 (4.5-11.0) 09/06/17 06:03 RBC 4.22 M/mm3 (3.65-5.03) 09/06/17 06:03 Hgb 13.3 gm/dl (11.8-15.2) 09/06/17 06:03 Hct 39.1 % (35.5-45.6) 09/06/17 06:03 MCV 93 fl (84-94) 09/06/17 06:03 MCH 31 pg (28-32) 09/06/17 06:03 MCHC 34 % (32-34) 09/06/17 06:03 RDW 12.9 % (13.2-15.2) L 09/06/17 06:03 Plt Count 167 K/mm3 (140-440) 09/06/17 06:03 Lymph % (Auto) 19.0 % (13.4-35.0) 09/06/17 06:03 [place] % (Auto) 10.3 % (0.0-7.3) H 09/06/17 06:03 Eos % (Auto) 3.2 % (0.0-4.3) 09/06/17 06:03 Baso % (Auto) 0.8 % (0.0-1.8) 09/06/17 06:03 Lymph # 2.0 K/mm3 (1.2-5.4) 09/06/17 06:03 [place] # 1.1 K/mm3 (0.0-0.8) H 09/06/17 06:03 Eos # 0.3 K/mm3 (0.0-0.4) 09/06/17 06:03 Baso # 0.1 K/mm3 (0.0-0.1) 09/06/17 06:03 Seg Neutrophils % 66.7 % (40.0-70.0) 09/06/17 06:03 Seg Neutrophils # 7.0 K/mm3 (1.8-7.7) 09/06/17 06:03 Sodium 137 mmol/L (137-145) 09/07/17 14:21 Potassium 4.2 mmol/L (3.6-5.0) 09/07/17 14:21 Chloride 98.3 mmol/L (98-107) 09/07/17 14:21 Carbon Dioxide 30 mmol/L (22-30) 09/07/17 14:21 Anion Gap 13 mmol/L 09/07/17 14:21 BUN 8 mg/dL (9-20) L 09/07/17 14:21 Creatinine 0.7 mg/dL (0.8-1.5) L 09/07/17 14:21 Estimated GFR > 60 ml/min 09/07/17 14:21 BUN/Creatinine Ratio 11 % 09/07/17 14:21 Glucose 109 mg/dL (75-100) H 09/07/17 14:21 POC Glucose 91 (70-105) 09/11/17 12:14 Calcium 9.5 mg/dL (8.4-10.2) 09/07/17 14:21 Magnesium 2.30 mg/dL (1.7-2.3) 09/05/17 16:38 Total Bilirubin 0.40 mg/dL (0.1-1.2) 09/05/17 16:38 Direct Bilirubin < 0.2 mg/dL (0-0.2) 09/05/17 16:38 Indirect Bilirubin 0.2 mg/dL 09/05/17 16:38 AST 20 units/L (5-40) 09/05/17 16:38 ALT 13 units/L (7-56) 09/05/17 16:38 Alkaline Phosphatase 58 units/L (35-129) 09/05/17 16:38 Ammonia 40.0 umol/L (25-60) 09/05/17 16:38 Total Protein 6.9 g/dL (6.3-8.2) 09/05/17 16:38 Albumin 4.5 g/dL (3.9-5) 09/05/17 16:38 Albumin/Globulin Ratio 1.9 % 09/05/17 16:38 TSH 7.270 mlU/mL (0.270-4.200) H 09/05/17 16:38 Free T4 1.24 ng/dL (0.76-1.46) 09/07/17 11:10 Urine Color Yellow (Yellow) 09/05/17 Unknown Urine Turbidity Clear (Clear) 09/05/17 Unknown Urine pH 7.0 (5.0-7.0) 09/05/17 Unknown Ur Specific [place] 1.012 (1.003-1.030) 09/05/17 Unknown Urine Protein <15 mg/dl mg/dL (Negative) 09/05/17 Unknown Urine Glucose (UA) Neg mg/dL (Negative) 09/05/17 Unknown Urine Ketones Neg mg/dL (Negative) 09/05/17 Unknown Urine Blood Neg (Negative) 09/05/17 Unknown Urine Nitrite Neg (Negative) 09/05/17 Unknown Urine Bilirubin Neg (Negative) 09/05/17 Unknown Urine Urobilinogen < 2.0 mg/dL (<2.0) 09/05/17 Unknown Ur Leukocyte Esterase Neg (Negative) 09/05/17 Unknown Urine WBC (Auto) 1.0 /HPF (0.0-6.0) 09/05/17 Unknown Urine RBC (Auto) 1.0 /HPF (0.0-6.0) 09/05/17 Unknown U Epithel Cells (Auto) < 1.0 /HPF (0-13.0) 09/05/17 Unknown Urine Mucus Few /HPF 09/05/17 Unknown Salicylates < 0.3 mg/dL (2.8-20.0) L 09/05/17 16:38 Urine Opiates Screen Presumptive negative 09/05/17 Unknown Urine Methadone Screen Presumptive negative 09/05/17 Unknown Acetaminophen < 5.0 ug/mL (10.0-30.0) L 09/05/17 16:38 Ur Barbiturates Screen Presumptive negative 09/05/17 Unknown Ur Phencyclidine Scrn Presumptive negative 09/05/17 Unknown Ur Amphetamines Screen Presumptive negative 09/05/17 Unknown U Benzodiazepines Scrn Presumptive negative 09/05/17 Unknown Urine Cocaine Screen Presumptive negative 09/05/17 Unknown U Marijuana (THC) Screen Presumptive negative 09/05/17 Unknown Drugs of Abuse Note Disclamer 09/05/17 Unknown Plasma/Serum Alcohol < 0.01 % (0-0.07) 09/05/17 16:38
[2017-09-11] MEDS: RisperDAL PO SCH (22:39)
[2017-09-12] MEDS: HumaLOG SUB-Q SCH ×4 (10:17→22:59)
[2017-09-12] MEDS: KEPPRA PO SCH ×2 (10:38→22:59)
[2017-09-12] MEDS: SODIUM CHLORIDE FLUSH SYRINGE 10 ML IV SCH ×2 (10:40→22:59)
[2017-09-12] MEDS: LOVENOX SUB-Q SCH (10:40)
--- NOTE | 2017-09-12 11:32 | Progress Note ---
Subjective - Reason for Consult Consult date: 09/12/17 Reason for consult: Psychiatry Follow-up - Chief Complaint Chief complaint: "Tata" Patient is a 21-year-old male, , with history of PTSD and Bipolar I (per his report) admitted to [facility] after having a seizure while hospitalized at [place]. Today the patient is calm and cooperative during the assessment. He continues to feel like kills the 'Taliban." He feels like the Taliban are near him currently. He denies SI's and AVH's. He denies any side effects of his medications. Mental Status Exam - Vital signs Last Vital Signs Temp 98.4 F 09/11/17 18:12 Pulse 57 L 09/11/17 23:00 Resp 16 09/11/17 23:00 BP 102/52 09/11/17 23:00 Pulse Ox 97 09/11/17 23:00 - Exam Narrative exam: MSE: Appearance: calm, cooperative Behavior: regular eye contact Speech: regular rate and tone Mood: "okay" Affect: congruent to mood Thought Process: circumstantial Thought Content: denies SI's and AVH's, delusional Motor Activity: sitting up in bed Cognition: A/O x 3 Insight: variable Judgment: variable Assessment and Plan Impression: Bipolar 1, most recent episode manic by his report. Hx of PTSD and Alcohol Use DO. Today the patient is calm and cooperative during the assessment. DDx: MDD, Delusional DO Medical: Per Neuro, the EEG can be done outpatient. 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 Recommendation/Plan: The patient's 1013 had to be extended. Continue Risperdal 1 mg PO HS for mood/psychosis. Discussed possible metabolic side effects of Risperdal with patient.
--- NOTE | 2017-09-12 13:40 | Progress Note ---
Assessment and Plan Assessment and plan: Patient is a 21-year-old man who is a , with history of PTSD and Bipolar Disorder admitted to [facility] after having a seizure while hospitalized at [employer]. He does not remember what happened before or after the seizure. The record indicates his blood sugar was low. Acute metabolic encephalopathy, poa due to hypoglycemia -Cortical level still pending, called and spoke with Yaya from lab, it is a send out lab and comes back in 3-5 business days,sent 09/08/17 Acute Seizure, induced by hypoglycemia? Psychosis? - on Keppra per Dr. Rinaldi Hypoglycemia, lowest blood glucose on bmp was 68, most likely from decrease oral intake - noted elevated TSH but has normal T4 level - ordered cortisol level - BG steady, will monitor BG off D10 Suicidal ideation - psych following, on 1013 h/o alcohol abuse - on remission DVT prophylaxis with lovenox Not hypotensive, normal potassium/sodium levels, so no need for steroids; therefore, Cortisol can be followed up outpatient with Endocrinology consult to Dr. Wolfe once out of [employer]; also need repeat thyroid function including total T3 as well as tsh and free t4, EEG can be done outpatient with dr. Rinaldi Cortical level can be followed up outpatient. Spoke again with Yaya from Chemistry labs, she will call [facility] and call me back Medically stable to be discharged to inpatient psych History Interval history: Patient was seen and examined. Follow-up on current diagnosis. Overnight uneventful. Patient denies any chest pain, shortness breath, nausea/vomiting or severe headaches. Imaging, nursing note, chart, labs and old chart reviewed. Discussed with patient. He still has SI and HI. Hospitalist Physical - Physical exam Narrative exam: GEN: WDWN, NAD, Awake, Alert, Orientated x 3 HEENT: NCAT, EOMI, PERRL, OP Clear NECK: supple, no adenopathy, no thyromegaly, no JVD CVS/HEART: RRR, normal S1S2, pulses present bilaterally CHEST/LUNGS: CTA B, Symmetrical chest expansion, good air entry bilaterally GI/Abdomen: soft, NTND, good bowel sounds, no guarding or rebound /Bladder: no suprapubic tenderness, no CVA or paraspinal tenderness EXT/Skin: no c/c/e, no obvious rash MSK: FROM x 4 Neuro: CN 2-12 grossly intact, no new focal deficits Psych: calm - Constitutional Vitals: Temp Pulse Resp BP Pulse Ox 98.4 F 57 L 16 102/52 97 09/11/17 18:12 09/11/17 23:00 09/11/17 23:00 09/11/17 23:00 09/11/17 23:00 General appearance: Present: no acute distress Results - Labs CBC & Chem 7: 09/06/17 06:03 09/07/17 14:21 Labs: Laboratory Last Values WBC 10.5 K/mm3 (4.5-11.0) 09/06/17 06:03 RBC 4.22 M/mm3 (3.65-5.03) 09/06/17 06:03 Hgb 13.3 gm/dl (11.8-15.2) 09/06/17 06:03 Hct 39.1 % (35.5-45.6) 09/06/17 06:03 MCV 93 fl (84-94) 09/06/17 06:03 MCH 31 pg (28-32) 09/06/17 06:03 MCHC 34 % (32-34) 09/06/17 06:03 RDW 12.9 % (13.2-15.2) L 09/06/17 06:03 Plt Count 167 K/mm3 (140-440) 09/06/17 06:03 Lymph % (Auto) 19.0 % (13.4-35.0) 09/06/17 06:03 [place] % (Auto) 10.3 % (0.0-7.3) H 09/06/17 06:03 Eos % (Auto) 3.2 % (0.0-4.3) 09/06/17 06:03 Baso % (Auto) 0.8 % (0.0-1.8) 09/06/17 06:03 Lymph # 2.0 K/mm3 (1.2-5.4) 09/06/17 06:03 [place] # 1.1 K/mm3 (0.0-0.8) H 09/06/17 06:03 Eos # 0.3 K/mm3 (0.0-0.4) 09/06/17 06:03 Baso # 0.1 K/mm3 (0.0-0.1) 09/06/17 06:03 Seg Neutrophils % 66.7 % (40.0-70.0) 09/06/17 06:03 Seg Neutrophils # 7.0 K/mm3 (1.8-7.7) 09/06/17 06:03 Sodium 137 mmol/L (137-145) 09/07/17 14:21 Potassium 4.2 mmol/L (3.6-5.0) 09/07/17 14:21 Chloride 98.3 mmol/L (98-107) 09/07/17 14:21 Carbon Dioxide 30 mmol/L (22-30) 09/07/17 14:21 Anion Gap 13 mmol/L 09/07/17 14:21 BUN 8 mg/dL (9-20) L 09/07/17 14:21 Creatinine 0.7 mg/dL (0.8-1.5) L 09/07/17 14:21 Estimated GFR > 60 ml/min 09/07/17 14:21 BUN/Creatinine Ratio 11 % 09/07/17 14:21 Glucose 109 mg/dL (75-100) H 09/07/17 14:21 POC Glucose 65 (70-105) L 09/12/17 09:33 Calcium 9.5 mg/dL (8.4-10.2) 09/07/17 14:21 Magnesium 2.30 mg/dL (1.7-2.3) 09/05/17 16:38 Total Bilirubin 0.40 mg/dL (0.1-1.2) 09/05/17 16:38 Direct Bilirubin < 0.2 mg/dL (0-0.2) 09/05/17 16:38 Indirect Bilirubin 0.2 mg/dL 09/05/17 16:38 AST 20 units/L (5-40) 09/05/17 16:38 ALT 13 units/L (7-56) 09/05/17 16:38 Alkaline Phosphatase 58 units/L (35-129) 09/05/17 16:38 Ammonia 40.0 umol/L (25-60) 09/05/17 16:38 Total Protein 6.9 g/dL (6.3-8.2) 09/05/17 16:38 Albumin 4.5 g/dL (3.9-5) 09/05/17 16:38 Albumin/Globulin Ratio 1.9 % 09/05/17 16:38 TSH 7.270 mlU/mL (0.270-4.200) H 09/05/17 16:38 Free T4 1.24 ng/dL (0.76-1.46) 09/07/17 11:10 Urine Color Yellow (Yellow) 09/05/17 Unknown Urine Turbidity Clear (Clear) 09/05/17 Unknown Urine pH 7.0 (5.0-7.0) 09/05/17 Unknown Ur Specific [place] 1.012 (1.003-1.030) 09/05/17 Unknown Urine Protein <15 mg/dl mg/dL (Negative) 09/05/17 Unknown Urine Glucose (UA) Neg mg/dL (Negative) 09/05/17 Unknown Urine Ketones Neg mg/dL (Negative) 09/05/17 Unknown Urine Blood Neg (Negative) 09/05/17 Unknown Urine Nitrite Neg (Negative) 09/05/17 Unknown Urine Bilirubin Neg (Negative) 09/05/17 Unknown Urine Urobilinogen < 2.0 mg/dL (<2.0) 09/05/17 Unknown Ur Leukocyte Esterase Neg (Negative) 09/05/17 Unknown Urine WBC (Auto) 1.0 /HPF (0.0-6.0) 09/05/17 Unknown Urine RBC (Auto) 1.0 /HPF (0.0-6.0) 09/05/17 Unknown U Epithel Cells (Auto) < 1.0 /HPF (0-13.0) 09/05/17 Unknown Urine Mucus Few /HPF 09/05/17 Unknown Salicylates < 0.3 mg/dL (2.8-20.0) L 09/05/17 16:38 Urine Opiates Screen Presumptive negative 09/05/17 Unknown Urine Methadone Screen Presumptive negative 09/05/17 Unknown Acetaminophen < 5.0 ug/mL (10.0-30.0) L 09/05/17 16:38 Ur Barbiturates Screen Presumptive negative 09/05/17 Unknown Ur Phencyclidine Scrn Presumptive negative 09/05/17 Unknown Ur Amphetamines Screen Presumptive negative 09/05/17 Unknown U Benzodiazepines Scrn Presumptive negative 09/05/17 Unknown Urine Cocaine Screen Presumptive negative 09/05/17 Unknown U Marijuana (THC) Screen Presumptive negative 09/05/17 Unknown Drugs of Abuse Note Disclamer 09/05/17 Unknown Plasma/Serum Alcohol < 0.01 % (0-0.07) 09/05/17 16:38
[2017-09-12] MEDS: RisperDAL PO SCH (22:59)
[2017-09-13] MEDS: HumaLOG SUB-Q SCH ×4 (08:09→22:30)
[2017-09-13] MEDS: KEPPRA PO SCH ×2 (10:17→22:22)
[2017-09-13] MEDS: LOVENOX SUB-Q SCH (10:17)
[2017-09-13] MEDS: SODIUM CHLORIDE FLUSH SYRINGE 10 ML IV SCH ×2 (10:17→22:23)
--- NOTE | 2017-09-13 11:58 | Progress Note ---
Assessment and Plan Assessment and plan: Patient is a 21-year-old man who is a , with history of PTSD and Bipolar Disorder admitted to [facility] after having a seizure while hospitalized at [place]. He does not remember what happened before or after the seizure. The record indicates his blood sugar was low. Acute metabolic encephalopathy, poa due to hypoglycemia -Cortical level still pending, called and spoke with Yaya from lab, it is a send out lab and comes back in 3-5 business days,sent 09/08/17 Acute Seizure, induced by hypoglycemia? Psychosis? - on Keppra per Dr. Rinaldi Hypoglycemia, lowest blood glucose on bmp was 68, most likely from decrease oral intake - noted elevated TSH but has normal T4 level - ordered cortisol level - BG steady, will monitor BG off D10 Suicidal ideation - psych following, on 1013 h/o alcohol abuse - on remission DVT prophylaxis with lovenox Not hypotensive, normal potassium/sodium levels, so no need for steroids; therefore, Cortisol can be followed up outpatient with Endocrinology consult to Dr. Wolfe once out of [place]; also need repeat thyroid function including total T3 as well as tsh and free t4, EEG can be done outpatient with dr. Rinaldi Cortical level can be followed up outpatient. 09/12/17 Spoke again with Yaya from Chemistry labs, she will call [facility] and call me back, which did not happen and no results given Medically cleared and stable to be discharged to inpatient psych History Interval history: Patient was seen and examined. Follow-up on current diagnosis. Overnight uneventful. Patient denies any chest pain, shortness breath, nausea/vomiting or severe headaches. Imaging, nursing note, chart, labs and old chart reviewed. Discussed with patient. He still has SI and HI. Hospitalist Physical - Physical exam Narrative exam: GEN: WDWN, NAD, Awake, Alert, Orientated x 3 HEENT: NCAT, EOMI, PERRL, OP Clear NECK: supple, no adenopathy, no thyromegaly, no JVD CVS/HEART: RRR, normal S1S2, pulses present bilaterally CHEST/LUNGS: CTA B, Symmetrical chest expansion, good air entry bilaterally GI/Abdomen: soft, NTND, good bowel sounds, no guarding or rebound /Bladder: no suprapubic tenderness, no CVA or paraspinal tenderness EXT/Skin: no c/c/e, no obvious rash MSK: FROM x 4 Neuro: CN 2-12 grossly intact, no new focal deficits Psych: calm - Constitutional Vitals: Temp Pulse Resp BP Pulse Ox 99.0 F 60 18 105/56 99 09/13/17 11:15 09/13/17 11:15 09/13/17 11:15 09/13/17 11:15 09/13/17 11:15 General appearance: Present: no acute distress Results - Labs CBC & Chem 7: 09/06/17 06:03 09/07/17 14:21 Labs: Laboratory Last Values WBC 10.5 K/mm3 (4.5-11.0) 09/06/17 06:03 RBC 4.22 M/mm3 (3.65-5.03) 09/06/17 06:03 Hgb 13.3 gm/dl (11.8-15.2) 09/06/17 06:03 Hct 39.1 % (35.5-45.6) 09/06/17 06:03 MCV 93 fl (84-94) 09/06/17 06:03 MCH 31 pg (28-32) 09/06/17 06:03 MCHC 34 % (32-34) 09/06/17 06:03 RDW 12.9 % (13.2-15.2) L 09/06/17 06:03 Plt Count 167 K/mm3 (140-440) 09/06/17 06:03 Lymph % (Auto) 19.0 % (13.4-35.0) 09/06/17 06:03 [place] % (Auto) 10.3 % (0.0-7.3) H 09/06/17 06:03 Eos % (Auto) 3.2 % (0.0-4.3) 09/06/17 06:03 Baso % (Auto) 0.8 % (0.0-1.8) 09/06/17 06:03 Lymph # 2.0 K/mm3 (1.2-5.4) 09/06/17 06:03 [place] # 1.1 K/mm3 (0.0-0.8) H 09/06/17 06:03 Eos # 0.3 K/mm3 (0.0-0.4) 09/06/17 06:03 Baso # 0.1 K/mm3 (0.0-0.1) 09/06/17 06:03 Seg Neutrophils % 66.7 % (40.0-70.0) 09/06/17 06:03 Seg Neutrophils # 7.0 K/mm3 (1.8-7.7) 09/06/17 06:03 Sodium 137 mmol/L (137-145) 09/07/17 14:21 Potassium 4.2 mmol/L (3.6-5.0) 09/07/17 14:21 Chloride 98.3 mmol/L (98-107) 09/07/17 14:21 Carbon Dioxide 30 mmol/L (22-30) 09/07/17 14:21 Anion Gap 13 mmol/L 09/07/17 14:21 BUN 8 mg/dL (9-20) L 09/07/17 14:21 Creatinine 0.7 mg/dL (0.8-1.5) L 09/07/17 14:21 Estimated GFR > 60 ml/min 09/07/17 14:21 BUN/Creatinine Ratio 11 % 09/07/17 14:21 Glucose 109 mg/dL (75-100) H 09/07/17 14:21 POC Glucose 76 (70-105) 09/13/17 07:37 Calcium 9.5 mg/dL (8.4-10.2) 09/07/17 14:21 Magnesium 2.30 mg/dL (1.7-2.3) 09/05/17 16:38 Total Bilirubin 0.40 mg/dL (0.1-1.2) 09/05/17 16:38 Direct Bilirubin < 0.2 mg/dL (0-0.2) 09/05/17 16:38 Indirect Bilirubin 0.2 mg/dL 09/05/17 16:38 AST 20 units/L (5-40) 09/05/17 16:38 ALT 13 units/L (7-56) 09/05/17 16:38 Alkaline Phosphatase 58 units/L (35-129) 09/05/17 16:38 Ammonia 40.0 umol/L (25-60) 09/05/17 16:38 Total Protein 6.9 g/dL (6.3-8.2) 09/05/17 16:38 Albumin 4.5 g/dL (3.9-5) 09/05/17 16:38 Albumin/Globulin Ratio 1.9 % 09/05/17 16:38 TSH 7.270 mlU/mL (0.270-4.200) H 09/05/17 16:38 Free T4 1.24 ng/dL (0.76-1.46) 09/07/17 11:10 Urine Color Yellow (Yellow) 09/05/17 Unknown Urine Turbidity Clear (Clear) 09/05/17 Unknown Urine pH 7.0 (5.0-7.0) 09/05/17 Unknown Ur Specific [place] 1.012 (1.003-1.030) 09/05/17 Unknown Urine Protein <15 mg/dl mg/dL (Negative) 09/05/17 Unknown Urine Glucose (UA) Neg mg/dL (Negative) 09/05/17 Unknown Urine Ketones Neg mg/dL (Negative) 09/05/17 Unknown Urine Blood Neg (Negative) 09/05/17 Unknown Urine Nitrite Neg (Negative) 09/05/17 Unknown Urine Bilirubin Neg (Negative) 09/05/17 Unknown Urine Urobilinogen < 2.0 mg/dL (<2.0) 09/05/17 Unknown Ur Leukocyte Esterase Neg (Negative) 09/05/17 Unknown Urine WBC (Auto) 1.0 /HPF (0.0-6.0) 09/05/17 Unknown Urine RBC (Auto) 1.0 /HPF (0.0-6.0) 09/05/17 Unknown U Epithel Cells (Auto) < 1.0 /HPF (0-13.0) 09/05/17 Unknown Urine Mucus Few /HPF 09/05/17 Unknown Salicylates < 0.3 mg/dL (2.8-20.0) L 09/05/17 16:38 Urine Opiates Screen Presumptive negative 09/05/17 Unknown Urine Methadone Screen Presumptive negative 09/05/17 Unknown Acetaminophen < 5.0 ug/mL (10.0-30.0) L 09/05/17 16:38 Ur Barbiturates Screen Presumptive negative 09/05/17 Unknown Ur Phencyclidine Scrn Presumptive negative 09/05/17 Unknown Ur Amphetamines Screen Presumptive negative 09/05/17 Unknown U Benzodiazepines Scrn Presumptive negative 09/05/17 Unknown Urine Cocaine Screen Presumptive negative 09/05/17 Unknown U Marijuana (THC) Screen Presumptive negative 09/05/17 Unknown Drugs of Abuse Note Disclamer 09/05/17 Unknown Plasma/Serum Alcohol < 0.01 % (0-0.07) 09/05/17 16:38
[2017-09-13] MEDS: RisperDAL PO SCH (22:22)
[2017-09-14] MEDS: HumaLOG SUB-Q SCH (08:00)
[2017-09-14] MEDS: KEPPRA PO SCH (09:27)
[2017-09-14] MEDS: SODIUM CHLORIDE FLUSH SYRINGE 10 ML IV SCH (09:30)
[2017-09-14] MEDS: LOVENOX SUB-Q SCH (09:30)
--- NOTE | 2017-09-14 10:37 | Progress Note ---
Subjective - Reason for Consult Consult date: 09/14/17 Reason for consult: Psychiatry Follow-up - Chief Complaint Chief complaint: "When will I be leaving" Patient is a 21-year-old male, , with history of PTSD and Bipolar I (per his report) admitted to [facility] after having a seizure while hospitalized at [place]. Today the patient is calm and cooperative during the assessment. He stated being suicidal overnight, but would not confirm or deny HI's when asked. He denies AVH's. He denies any side effects of his medications. Mental Status Exam - Vital signs Last Vital Signs Temp 98.0 F 09/13/17 22:45 Pulse 58 L 09/13/17 22:45 Resp 18 09/13/17 22:45 BP 98/39 09/13/17 22:45 Pulse Ox 98 09/13/17 22:45 - Exam Narrative exam: MSE: Appearance: calm, cooperative Behavior: regular eye contact Speech: regular rate and tone Mood: "okay" Affect: congruent to mood Thought Process: circumstantial Thought Content: denies SI's and AVH's, delusional Motor Activity: sitting up in bed Cognition: A/O x 3 Insight: variable Judgment: variable Assessment and Plan Impression: Bipolar 1, most recent episode manic by his report. Hx of PTSD and Alcohol Use DO. Today the patient is calm and cooperative during the assessment. DDx: MDD, Delusional DO Medical: Per Neuro, the EEG can be done outpatient. 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 Recommendation/Plan: Continue 1013 with placement to [facility] today. Continue Risperdal 1 mg PO HS for mood/psychosis. Discussed possible metabolic side effects of Risperdal with patient.
[2017-09-14 11:21] VITALS: BP 162/64
--- NOTE | 2017-09-14 12:36 | Progress Note ---
Assessment and Plan Assessment and plan: Patient is a 21-year-old man who is a , with history of PTSD and Bipolar Disorder admitted to [facility] after having a seizure while hospitalized at [facility]. He does not remember what happened before or after the seizure. The record indicates his blood sugar was low. Acute metabolic encephalopathy, poa due to hypoglycemia -Cortical level still pending, called and spoke with Yaya from lab, it is a send out lab and comes back in 3-5 business days,sent 09/08/17 Acute Seizure, induced by hypoglycemia? Psychosis? - on Keppra per Dr. Rinaldi Hypoglycemia, lowest blood glucose on bmp was 68, most likely from decrease oral intake - noted elevated TSH but has normal T4 level - ordered cortisol level - BG steady, will monitor BG off D10 Subclinical Hypothyrodism - start Levothyroxine @ 1.6mcg/kg (pt weight 63kg) per day Suicidal ideation - psych following, on 1013 h/o alcohol abuse - on remission DVT prophylaxis with lovenox Not hypotensive, normal potassium/sodium levels, so no need for steroids; therefore, Cortisol can be followed up outpatient with Endocrinology consult to Dr. Wolfe once out of [facility]; also need repeat thyroid function including total T3 as well as tsh and free t4, EEG can be done outpatient with dr. Rinaldi Cortical level can be followed up outpatient. 09/12/17 Spoke again with Yaya from Chemistry labs, she will call [facility] and call me back, which did not happen and no results given Medically cleared and stable to be discharged to inpatient psych History Interval history: Patient was seen and examined. Follow-up on current diagnosis. Overnight uneventful. Patient denies any chest pain, shortness breath, nausea/vomiting or severe headaches. Imaging, nursing note, chart, labs and old chart reviewed. Discussed with patient. He still has SI and HI. Hospitalist Physical - Physical exam Narrative exam: GEN: WDWN, NAD, Awake, Alert, Orientated x 3 HEENT: NCAT, EOMI, PERRL, OP Clear NECK: supple, no adenopathy, no thyromegaly, no JVD CVS/HEART: RRR, normal S1S2, pulses present bilaterally CHEST/LUNGS: CTA B, Symmetrical chest expansion, good air entry bilaterally GI/Abdomen: soft, NTND, good bowel sounds, no guarding or rebound /Bladder: no suprapubic tenderness, no CVA or paraspinal tenderness EXT/Skin: no c/c/e, no obvious rash MSK: FROM x 4 Neuro: CN 2-12 grossly intact, no new focal deficits Psych: calm - Constitutional Vitals: Temp Pulse Resp BP Pulse Ox 97.8 F 72 18 162/64 96 09/14/17 11:15 09/14/17 11:15 09/14/17 11:15 09/14/17 11:15 09/14/17 11:15 General appearance: Present: no acute distress Results - Labs CBC & Chem 7: 09/06/17 06:03 09/07/17 14:21 Labs: Laboratory Last Values WBC 10.5 K/mm3 (4.5-11.0) 09/06/17 06:03 RBC 4.22 M/mm3 (3.65-5.03) 09/06/17 06:03 Hgb 13.3 gm/dl (11.8-15.2) 09/06/17 06:03 Hct 39.1 % (35.5-45.6) 09/06/17 06:03 MCV 93 fl (84-94) 09/06/17 06:03 MCH 31 pg (28-32) 09/06/17 06:03 MCHC 34 % (32-34) 09/06/17 06:03 RDW 12.9 % (13.2-15.2) L 09/06/17 06:03 Plt Count 167 K/mm3 (140-440) 09/06/17 06:03 Lymph % (Auto) 19.0 % (13.4-35.0) 09/06/17 06:03 [place] % (Auto) 10.3 % (0.0-7.3) H 09/06/17 06:03 Eos % (Auto) 3.2 % (0.0-4.3) 09/06/17 06:03 Baso % (Auto) 0.8 % (0.0-1.8) 09/06/17 06:03 Lymph # 2.0 K/mm3 (1.2-5.4) 09/06/17 06:03 [place] # 1.1 K/mm3 (0.0-0.8) H 09/06/17 06:03 Eos # 0.3 K/mm3 (0.0-0.4) 09/06/17 06:03 Baso # 0.1 K/mm3 (0.0-0.1) 09/06/17 06:03 Seg Neutrophils % 66.7 % (40.0-70.0) 09/06/17 06:03 Seg Neutrophils # 7.0 K/mm3 (1.8-7.7) 09/06/17 06:03 Sodium 137 mmol/L (137-145) 09/07/17 14:21 Potassium 4.2 mmol/L (3.6-5.0) 09/07/17 14:21 Chloride 98.3 mmol/L (98-107) 09/07/17 14:21 Carbon Dioxide 30 mmol/L (22-30) 09/07/17 14:21 Anion Gap 13 mmol/L 09/07/17 14:21 BUN 8 mg/dL (9-20) L 09/07/17 14:21 Creatinine 0.7 mg/dL (0.8-1.5) L 09/07/17 14:21 Estimated GFR > 60 ml/min 09/07/17 14:21 BUN/Creatinine Ratio 11 % 09/07/17 14:21 Glucose 109 mg/dL (75-100) H 09/07/17 14:21 POC Glucose 68 (70-105) L 09/14/17 07:47 Calcium 9.5 mg/dL (8.4-10.2) 09/07/17 14:21 Magnesium 2.30 mg/dL (1.7-2.3) 09/05/17 16:38 Total Bilirubin 0.40 mg/dL (0.1-1.2) 09/05/17 16:38 Direct Bilirubin < 0.2 mg/dL (0-0.2) 09/05/17 16:38 Indirect Bilirubin 0.2 mg/dL 09/05/17 16:38 AST 20 units/L (5-40) 09/05/17 16:38 ALT 13 units/L (7-56) 09/05/17 16:38 Alkaline Phosphatase 58 units/L (35-129) 09/05/17 16:38 Ammonia 40.0 umol/L (25-60) 09/05/17 16:38 Total Protein 6.9 g/dL (6.3-8.2) 09/05/17 16:38 Albumin 4.5 g/dL (3.9-5) 09/05/17 16:38 Albumin/Globulin Ratio 1.9 % 09/05/17 16:38 TSH 7.270 mlU/mL (0.270-4.200) H 09/05/17 16:38 Free T4 1.24 ng/dL (0.76-1.46) 09/07/17 11:10 Urine Color Yellow (Yellow) 09/05/17 Unknown Urine Turbidity Clear (Clear) 09/05/17 Unknown Urine pH 7.0 (5.0-7.0) 09/05/17 Unknown Ur Specific [place] 1.012 (1.003-1.030) 09/05/17 Unknown Urine Protein <15 mg/dl mg/dL (Negative) 09/05/17 Unknown Urine Glucose (UA) Neg mg/dL (Negative) 09/05/17 Unknown Urine Ketones Neg mg/dL (Negative) 09/05/17 Unknown Urine Blood Neg (Negative) 09/05/17 Unknown Urine Nitrite Neg (Negative) 09/05/17 Unknown Urine Bilirubin Neg (Negative) 09/05/17 Unknown Urine Urobilinogen < 2.0 mg/dL (<2.0) 09/05/17 Unknown Ur Leukocyte Esterase Neg (Negative) 09/05/17 Unknown Urine WBC (Auto) 1.0 /HPF (0.0-6.0) 09/05/17 Unknown Urine RBC (Auto) 1.0 /HPF (0.0-6.0) 09/05/17 Unknown U Epithel Cells (Auto) < 1.0 /HPF (0-13.0) 09/05/17 Unknown Urine Mucus Few /HPF 09/05/17 Unknown Salicylates < 0.3 mg/dL (2.8-20.0) L 09/05/17 16:38 Urine Opiates Screen Presumptive negative 09/05/17 Unknown Urine Methadone Screen Presumptive negative 09/05/17 Unknown Acetaminophen < 5.0 ug/mL (10.0-30.0) L 09/05/17 16:38 Ur Barbiturates Screen Presumptive negative 09/05/17 Unknown Ur Phencyclidine Scrn Presumptive negative 09/05/17 Unknown Ur Amphetamines Screen Presumptive negative 07/13/18 Unknown U Benzodiazepines Scrn Presumptive negative 09/05/17 Unknown Urine Cocaine Screen Presumptive negative 09/05/17 Unknown U Marijuana (THC) Screen Presumptive negative 09/05/17 Unknown Drugs of Abuse Note Disclamer 09/05/17 Unknown Plasma/Serum Alcohol < 0.01 % (0-0.07) 09/05/17 16:38
[2017-09-15] MEDS ORDERED: SYNTHROID PO SCH (06:00)
== END 2017-09-14 12:00 | DRG 640 ==
LOC: ED 14:51 → 3A 22:23
PROVIDERS: ADMIT Internal Medicine; ATTEND Internal Medicine
DX: E16.2 Hypoglycemia, unspecified (principal); G93.41 Metabolic encephalopathy; R45.851 Suicidal ideations; F43.10 Post-traumatic stress disorder, unspecified; R56.9 Unspecified convulsions; F17.210 Nicotine dependence, cigarettes, uncomplicated; F31.9 Bipolar disorder, unspecified; F10.10 Alcohol abuse, uncomplicated; E02 Subclinical iodine-deficiency hypothyroidism
CPT/HCPCS: 36415; 70450; 80048; 80074; 80307; 80320; 81001; 82140; 82533; 82962; 83735; 84439; 84443; 85025; 85027; 93005; 93010; 95819; 96372; 96374; 96375; G0480; J1630; J1650; J2060; J2405; J7030